=== PATIENT | female | born 1945 | race Caucasian/White ===

== ENCOUNTER → 2016-05-07 | Outpatient (CLI) | payer MEDICARE ==
[2016-04-29 15:11] VITALS: BMI 37.8
--- NOTE | 2016-05-07 15:00 | P.CONS ---
History of Present Illness - Reason for Consult Consult date: 05/07/16 - History of Present Illness This is the initial consultation visit for to 70 years old female with a three- month history of severe headache, the headache started without any initiating event, and radiated to the top of the head and behind her ears, it is bilateral but it's more on the right side, she denies any visual problems, unknown history of cold or sinus problems, and she had no motor or sensory deficit, patient denied any aura, she was treated with headache medication without any benefit, and she was evaluated by Dr. Centeno neurologist and she recommended occipital nerve block, and she is here today to discuss the occipital nerve block Past Medical History Past Medical History: COPD, CVA/TIA, Diabetes Mellitus, Deep Vein Thrombosis ( DVT), Eye Disorder, GERD/Reflux, Hyperlipidemia, Hypertension, Pneumonia, Renal Disease, Sleep Apnea/CPAP/BIPAP Additional Past Medical History / Comment(s): anemia,macular degeneration, kidney disease stage 3, hx kidney stones, pain-head History of Any Multi-Drug Resistant Organisms: None Reported Past Surgical History: Back Surgery, Orthopedic Surgery Additional Past Surgical History / Comment(s): back fusion with rods and pins, carpal tunnel amanda, arthroscopy lt knee, 2 kidney stone surgeries Past Anesthesia/Blood Transfusion Reactions: No Reported Reaction Past Psychological History: Depression Smoking Status: Former smoker Past Alcohol Use History: None Reported Additional Past Alcohol Use History / Comment(s): smoker 18 years 2ppd quit 2002 Past Drug Use History: None Reported - Past Family History Mother Family Medical History: Diabetes Mellitus Father Family Medical History: COPD Brother(s) Family Medical History: Cancer Additional Family Medical History / Comment(s): prostate cancer Sister(s) Family Medical History: Coronary Artery Disease (CAD), Diabetes Mellitus, Renal Disease Medications and Allergies Home Medications Medication Instructions Recorded Confirmed Type Acetaminophen [Tylenol Arthritis] 650 mg PO DAILY PRN 04/29/16 05/07/16 History Ascorbic Acid [Vitamin C] 500 mg PO DAILY 04/29/16 05/07/16 History Aspirin [Adult Low Dose Aspirin EC] 81 mg PO DAILY 04/29/16 05/07/16 History Atorvastatin [Lipitor] 10 mg PO DAILY 04/29/16 05/07/16 History Ergocalciferol (Vitamin D2) 50,000 unit PO TU 04/29/16 05/07/16 History [Vitamin D2] Fenofibrate Nanocrystallized 145 mg PO DAILY 04/29/16 05/07/16 History [Fenofibrate] Ferrous Sulfate [Feosol] 325 mg PO DAILY 04/29/16 05/07/16 History Fluticasone/Salmeterol [Advair 1 inhalation PO BID 04/29/16 05/07/16 History 250-50 Diskus] Focusmacular 1 tab PO DAILY 04/29/16 05/07/16 History Furosemide [Lasix] 20 mg PO DAILY 04/29/16 05/07/16 History Gabapentin [Neurontin] 300 mg PO BID 04/29/16 05/07/16 History Glimepiride [Amaryl] 4 mg PO BID 04/29/16 05/07/16 History Insulin Glargine,Hum.rec.anlog 55 unit SQ 04/29/16 05/07/16 History [Lantus Solostar] Ipratropium/Albuterol Sulfate 2 puff INHALATION QID PRN 04/29/16 05/07/16 History [Combivent Respimat Inhaler] Losartan [Cozaar] 25 mg PO DAILY 04/29/16 05/07/16 History Omeprazole 20 mg PO BID 04/29/16 05/07/16 History Psyllium Husk 100% [Metamucil] 6 gm PO 04/29/16 05/07/16 History Sertraline [Zoloft] 75 mg PO DAILY 04/29/16 05/07/16 History Turmeric Root Extract [Turmeric] 500 mg PO DAILY 04/29/16 05/07/16 History metFORMIN HCL [Glucophage] 500 mg PO BID 04/29/16 05/07/16 History Allergies Allergy/AdvReac Type Severity Reaction Status Date / Time Iodinated Contrast Media - Allergy lightheaded, Verified 05/07/16 13:48 Oral and nausea Physical Exam Social history : Former smoker , NO ETOH , NO Illegal drugs. Review of Systems : 1- Constitutional : no chills , no fever , no night sweats , 2- Ears : no ear discharge , no change in hearing 3-Nose, Mouth ,Throat ; no bleeding gums, no sore throat , no epistaxis , 4-Cardiovascular : Denies chest pain, , no orthopnea , no palpitation 5-Respiratory : Denies cough , no dyspnea , no hemoptysis 6-Gastrointestinal :, no change in bowel habits , no coffee- ground emesis . 7-Genitourinary : No hematuria , no discharge , no incontinence, 8-Musculoskeletal : No gait dysfunction , report low back pain , 9- Neurological : no ataxia , no tremor , no sezure , 10-Psychatric , no suicidal ideation no hallucination 11- Endocrine : no cold intolerence , no polyuria , no polydypsia , 12-Hematologic : no easy bleeding , no easy brusing , 13-Allergic / immunology : no angioedema , no wheezing ,no allergic rhinitis 14-Integumentary : no brttle nails , no change hair / nails , no foot/leg ulcers . Physical Examinations : 1-Constitutional : Cooperative , not in acute distress . 2-HEENT : nech ; supple , no Lymphadenopathy , no Thyromegaly , eyes , no icterus, no photophobia . ENT : , normal oropharynx , no Thrush 3- Respiratory : Chest clear to auscultations Bilaterally , no wheezing . 4- Cardiovascular : regular rate and rhythem , S1 , S2 , no S3 , no S4. 5- Gastrointestinal: abdomen soft no tenderness , no organomegally . 6- Genitourinary : Defferred . 7-Integumentary : No cellulitis , no ulcers , normal skin turgor , no cyanotic . 8- neurologic : Cranial nerve II to XII intact , no focal neurological deffecit 9-psychatric : alert , oriented X 3 , appropriate affect , intact judgment and insight . 10-Lymphatic : no Lymphadenopathy. 11- musculoskeltal: normal gait , exams of the cervical spine = motor stregnth in the deltoid and biceps, normal right side , normal Left side motor stregnth biceps and the wrist extensors normal right side ,normal left side . motor stregnth in the triceps muscle . normal Right side , normal Left side positive cervical facet loading test . Positive tenderness over the occipital nerve bilaterally exams of the Lumber spine = moter stegnth lower extremities , thigh and legs 5/5 Right side , 5/5 Left side deep tendon reflexes : normal Knee Jerk , normal ankle Jerk Results Comments: MRI of the brain done 03/04/2016 [facility]= normal MRI of the brain Assessment and Plan Plan: Assessment and plan= 1-occipital neuralgia (bilateral ) 2-cervicogenic headache. The patient could benefit from bilateral occipital nerve block, procedure risk and benefits and alternatives discussed with the patient and she agreed with the preceding, and if patient continued to have headache after the occipital nerve block then we will consider doing MRI of the cervical spine to identify the etiology, the patient will be scheduled for bilateral occipital nerve block TERRI Time with Patient: Greater than 30
== END | disposition home or self-care (01) ==
LOC: PNWHC3 13:25
PROVIDERS: ATTEND Specialist
DX: M54.81 Occipital neuralgia (principal); R51 Headache; K21.9 Gastro-esophageal reflux disease without esophagitis; D64.9 Anemia, unspecified; G47.30 Sleep apnea, unspecified; F32.9 Major depressive disorder, single episode, unspecified; N18.3 Chronic kidney disease, stage 3 (moderate); I12.9 Hypertensive chronic kidney disease with stage 1 through stage 4 chronic kidney disease, or unspecified chronic kidney disease; E11.22 Type 2 diabetes mellitus with diabetic chronic kidney disease; J44.9 Chronic obstructive pulmonary disease, unspecified; H35.30 Unspecified macular degeneration; E78.5 Hyperlipidemia, unspecified; Z79.4 Long term (current) use of insulin; Z79.84 Long term (current) use of oral hypoglycemic drugs; Z86.73 Personal history of transient ischemic attack (TIA), and cerebral infarction without residual deficits; Z79.82 Long term (current) use of aspirin; Z91.041 Radiographic dye allergy status; Z87.891 Personal history of nicotine dependence; Z82.49 Family history of ischemic heart disease and other diseases of the circulatory system; Z86.718 Personal history of other venous thrombosis and embolism; Z79.899 Other long term (current) drug therapy
CPT/HCPCS: 99211

== ENCOUNTER 2016-05-23 07:12 | Day surgery (SDC) | payer MEDICARE ==
[2016-05-20 12:08] VITALS: BMI 37.1
[2016-05-23] MEDS ORDERED: LACTATED RINGERS 1,000 ML IV ONE (08:02)
[2016-05-23] MEDS ORDERED: LIDOCAINE 1% 20 ML VIAL (10MG/ML) FOR IV START INTRADERMA ONE (08:02)
[2016-05-23 08:17] VITALS: TEMP 97.7
[2016-05-23 08:18] LABS: Glucose,Whole Blood 143 mg/dL (75-99)
[2016-05-23] MEDS ORDERED: LACTATED RINGERS 1,000 ML IV SCH (08:45)
[2016-05-23] MEDS ORDERED: BUPIVACAINE (PF) 0.5% 30 ML VIAL ONE (09:07)
[2016-05-23] MEDS ORDERED: TRIAMCINOLONE ACETONIDE 40 MG/ML 1 ML VIAL ONE (09:07)
[2016-05-23] MEDS ORDERED: IV FLUID CONTINUATION 1,000 ML IV ONE (09:19)
[2016-05-23 09:24] VITALS: PULSE 73; RESP 18
--- NOTE | 2016-05-23 09:24 | P.PCN ---
Date of Procedure: 05/23/16 Anesthesia: local Surgeon: Hugh Santos Pathology: none sent Condition: stable Disposition: PACU Description of Procedure: Pre-operative diagnosis: 1- Bilateral occipital neuralgia Post Operative Diagnosis: 1- Bilateral occipital neuralgia Procedure: Bilateral occipital nerve block ANESTHESIA: Local EBL: Minimal PROCEDURE INDICATION: The patient with neck pain and headache secondary to bilateral occipital neuralgia and has failed conservative management. No use of blood thinners today. PROCEDURE DESCRIPTION / TECHNIQUE: The patient was seen and identified in the preoperative area. Risks, benefits, complications, and alternatives were discussed with the patient (including but not limited to incomplete pain relief , bleeding, infection, nerve damage, and allergies to medications), the patient agreed to proceed with the procedure and signed the consent after all questions were answered. Patient was taken to the OR and time out was completed to verify proper patient , position, laterality of pain, and allergies. Pt was placed in the sitting position. IV was started. Vital signs remained stable throughout the procedure. Conscious sedation was used during the procedure to decrease patients anxiety. The cervical area and bilateral occipital areas were prepped in the usual sterile fashion. Critical pause was taken. The right occipital ridge was palpated and was then accessed with a 25 G needle. Then after negative aspiration, 3 ml of the total 6 ml block solution containing 4 ml of PF Bupivacaine 0.5% and Kenalog 80 mg was injected. Needle was withdrawn intact. The entire procedure was then repeated on the left side exactly as above. Needle was withdrawn intact and there were no acute complications. DISPOSITION / PLANS: The patient was placed in a supine position and transferred to the recovery area in a stable condition for observation and was discharged from the recovery room after meeting discharge criteria. Home discharge instructions given to the patient by the staff. The patient was reexamined prior to discharge and there were no issues. The patient will schedule a follow up injection in approximately 4-6 weeks.
[2016-05-23 09:39] VITALS: BP 143/78
--- NOTE | 2016-05-27 06:09 | CDI ---
Dear Dr. Santos, Per your procedure note under Anesthesia a local anesthesia was documented. Also, in the body of the report in the second paragraph under Procedure Description/Technique Conscious Sedation is documented. On the Pain Procedure Record, however, MAC is checked off under Anesthesia Plan. This is conflicting documentation that needs clarification for proper reporting purposes. Please clarify if the anesthesia provided Jalen Rogers was MAC (Monitored Anesthesia Care), Local, or Conscious/Moderate Sedation. Please document this clarification on an addendum to the procedure note. Thank you for your time, Ruthie Lugo,[facility] Outpatient Charge Entry [email or web address] [email or web address]
== END 2016-05-23 09:49 | disposition home or self-care (01) ==
LOC: ORPAIN 07:12
PROVIDERS: ATTEND Anesthesiology
DX: M54.81 Occipital neuralgia (principal); I10 Essential (primary) hypertension; E78.5 Hyperlipidemia, unspecified; E11.9 Type 2 diabetes mellitus without complications; Z79.4 Long term (current) use of insulin; Z79.84 Long term (current) use of oral hypoglycemic drugs; G47.30 Sleep apnea, unspecified; Z99.89 Dependence on other enabling machines and devices; K21.9 Gastro-esophageal reflux disease without esophagitis; J44.9 Chronic obstructive pulmonary disease, unspecified; Z87.891 Personal history of nicotine dependence; Z86.718 Personal history of other venous thrombosis and embolism; Z79.82 Long term (current) use of aspirin; Z79.51 Long term (current) use of inhaled steroids; Z79.899 Other long term (current) drug therapy; Z88.5 Allergy status to narcotic agent; Z91.041 Radiographic dye allergy status
CPT/HCPCS: 64405; J3301

== ENCOUNTER 2016-07-25 05:54 | Day surgery (SDC) | payer MEDICARE ==
[2016-07-23 16:00] VITALS: BMI 37.1
[~2016-07-25 05:54] MED LIST: LACTATED RINGERS 1,000 ML IV SCH
[2016-07-25 06:34] VITALS: RESP 16; TEMP 97.8
[2016-07-25 06:44] LABS: Glucose,Whole Blood 148 mg/dL (75-99)
[2016-07-25] MEDS ORDERED: LIDOCAINE 1% 20 ML VIAL (10MG/ML) FOR IV START INTRADERMA ONE (06:47)
[2016-07-25] MEDS ORDERED: BUPIVACAINE (PF) 0.75% 30 ML VIAL ONE (07:10)
[2016-07-25] MEDS ORDERED: TRIAMCINOLONE ACETONIDE 40 MG/ML 1 ML VIAL ONE (07:10)
[2016-07-25] MEDS ORDERED: fentaNYL (PF) 50 MCG/ML 2 ML AMP ONE (07:10)
[2016-07-25] MEDS ORDERED: MIDAZOLAM 2 MG/2 ML VIAL ONE (07:10)
[2016-07-25] MEDS ORDERED: IV FLUID CONTINUATION 1,000 ML IV ONE ×2 (07:41)
[2016-07-25 07:56] VITALS: BP 128/75; PULSE 74
--- NOTE | 2016-07-25 08:17 | P.PCN ---
Date of Procedure: 07/25/16 Procedure(s) Performed: Pre-operative diagnosis: 1- Bilateral occipital neuralgea. 2-cervicogenic headache Post Operative Diagnosis 1- Bilateral occipital neuralgea. 2-cervicogenic headache Procedure: 1- Bilateral occipital nerve block ANESTHESIA: Conscious sedation with Versed. 2 mg and fentanyl 100 micrograms EBL: Minimal PROCEDURE INDICATION: The patient with neck pain and headache secondary to occipital neuralgea unresponsive to conservative treatments. PROCEDURE DESCRIPTION / TECHNIQUE: The patient was seen and identified in the preoperative area. Risks, benefits, complications, and alternatives were discussed with the patient, the patient agreed to proceed with the procedure and signed the consent. IV was started. Vital signs remained stable throughout the procedure. Patient was taken to the OR and time out was completed. The patient was placed in the sitting position on the procedure table. A pillow was placed under the patients chest to increase the cervical interlaminar space. The cervical area and right occiptial area were prepped with alcohol swab. Critical pause was taken. Vital signs were closely monitored during the procedure. Conscious sedation was used during the procedure to decrease patients anxiety. The right occiptal ridge was palpated and was then accessed with a 25 G needle. Then after negative aspiration, 5ml of the block solution containing 6 ml of PF Buvicaine 0.75% and Kenalog 20 mg was injected. Needle was withdrawn intact. Then the same procedure was repeated on the left side and related the left occipital nerve block, after negative aspiration 6 mL of the block solution containing ropivacaine 0.75% and 20 mg of Kenalog injected after negative aspiration Patient tolerated procedure well. No acute complications.
== END 2016-07-25 08:20 | disposition home or self-care (01) ==
LOC: ORPAIN 05:54
PROVIDERS: ATTEND Specialist
DX: M54.81 Occipital neuralgia (principal); R51 Headache; Z91.09 Other allergy status, other than to drugs and biological substances
CPT/HCPCS: 64405; J2250; J3301; J3010

== ENCOUNTER → 2016-09-17 | Outpatient (CLI) | payer MEDICARE ==
[2016-09-17 13:55] VITALS: BP 138/79; PULSE 90; RESP 16; TEMP 98.4
--- NOTE | 2016-09-17 14:31 | P.PN ---
Progress Note - Text Patient returns for followup for chronic neck pain, shoulder pain, and headaches. Patient recently underwent occipital nerve block x 2, which provided some relief for 1-2 weeks' interval apiece. Patient continues on OTC medications for pain with good relief. Patient denies adverse drug effects from medications. Today, pt denies new-onset weakness, bowel/bladder incontinence, or any other signs or symptoms of cauda equina syndrome. There are no signs of acute intoxication, and no indications of medication diversion or overuse. In addition to above, 13-point review of systems is also negative for chest pain , shortness of breath, changes in vision, changes in hearing, new onset weakness , abdominal pain, diarrhea, extreme fatigue, malaise, fever, skin changes, homicidal or suicidal ideation, or bowel or bladder incontinence. Vital Signs: Reviewed in EMR Gen: WDWN, AAOx3, NAD HEENT: NCAT, EOMI, hearing grossly normal Pulm: resp unlabored Abd: soft, NT, ND Neck: supple, trachea midline ROM in flexion cervical spine: reduced ROM in extension cervical spine: reduced Cervical paravertebral tenderness: + Cervical Facet tenderness: + bilateral, R > L Spurling's: neg Upper extremity: decreased teacher early childhood development strength secondary to pain Neuro: CN II-XII grossly intact, muscle strength lower extremities PRESERVED Imaging: MRI cervical spine dated 07/19/2016 demonstrates a central disc and discogenic protrusion at C3-C4 level producing indentation on the anterior portion of the cervical cord. There is narrowing of the anterior subarachnoid space. At C4-C5 level there is circumferential discogenic protrusion producing narrowing of the anterior subarachnoid space with minimal indentation on the anterior portion of the cervical cord. There are mild hypertrophic changes of the posterior facets. At the C5-C6 level there is similar narrowing of the anterior subarachnoid space circumferential disc protrusion posteriorly. There are hypertrophic changes of the posterior facets. Assessment: 1. cervical spondylosis 2. cervicogenic headache 3. chronic pain syndrome Plan: 1. Explanation: Opioid and psychological risk scores were reviewed. Diagnoses , prognoses, and multiple treatment options including but not limited to physical therapy, interventional therapies, adjuvant medical therapies, narcotic medication therapies, and surgery were discussed with the patient and all questions were answered to the patient's satisfaction. 2. Opioid agreement: no opioids prescribed today 3. Counseling: The patient was counseled extensively on BODY MASS INDEX, EXERCISE. Specifically, the patient was instructed regarding the importance of smoking cessation, obesity, and exercise in the context of both chronic pain and overall health. 4. Procedures: bilateral cervical MBB (C3-C6 ideally) 5. Consultations: None 6. Investigations: None 7. Medications: none prescribed 8. Disposition: f/u for procedure as scheduled PQRS measures: 1-Patient's medications are documented in the chart. 2-Tobacco use is negative, counseling NOT given 3-Patient has had a pneumococcal vaccine. 4-Advanced care planning discussed, patient unable to give. 5-Opioid contract NOT signed with the patient. 6-Pain positive, follow-up visit or procedure scheduled 7-Patient's blood pressure measured and documented, and patient will follow up with the primary care due to hypertension. 8-Patient's weight was measured, and body mass index ABOVE the normal limits, and counseling was done. Patient instructed to follow up with PCP. 9-Patient WAS NOT identified as an unhealthy alcohol user.
== END | disposition home or self-care (01) ==
LOC: PNWHC3 13:28
PROVIDERS: ATTEND Anesthesiology
DX: M47.812 Spondylosis without myelopathy or radiculopathy, cervical region (principal); R51 Headache; G89.4 Chronic pain syndrome
CPT/HCPCS: 99211

== ENCOUNTER 2016-10-28 07:32 | Day surgery (SDC) | payer MEDICARE ==
[2016-10-21 12:21] VITALS: BMI 38.2
[2016-10-28 08:02] VITALS: TEMP 98.2
[2016-10-28] MEDS ORDERED: LACTATED RINGERS 1,000 ML IV ONE (08:02)
[2016-10-28] MEDS ORDERED: LIDOCAINE 1% 20 ML VIAL (10MG/ML) FOR IV START INTRADERMA ONE (08:02)
[2016-10-28] MEDS ORDERED: LACTATED RINGERS 1,000 ML IV SCH (08:30)
[2016-10-28] MEDS ORDERED: IV FLUID CONTINUATION 1,000 ML IV ONE (09:22)
--- NOTE | 2016-10-28 09:23 | P.PCN ---
Date of Procedure: 10/28/16 Preoperative Diagnosis: Cervicogenic headache Postoperative Diagnosis: Same as above Procedure(s) Performed: Bilateral cervical medial branch blockC2,C3,C4 and B/L third occipital nerve block. Implants: Anesthesia: other (Moderate sedation with 1 mg of Versed and 50 g of fentanyl IV) Surgeon: Girma Sosa Pathology: none sent Condition: stable Disposition: PACU Indications for Procedure: Operative Findings: Description of Procedure: The patient was seen in the preop holding area she was complaining of mostly headache more so than neck pain she has some stiffness in her neck the main complaint is the anterior and occipital headache. Decided to do the C2 and C3 and C4 medial branch blocks bilaterally under fluoroscopic guidance and the third occipital nerve block bilaterally. The patient was brought into the procedure room and placed in the supine position. Skin was prepped with DuraPrep and draped in a sterile manner. Lidocaine 1% was used to numb the skin up at the target points that were chosen as follows: For the occipital nerve the target points were at the center of the joint line between C2 and C3 upper ,middle, and lower edge of this joint line, and for the C2 and C3 and C4 medial branches the target points were the center of the trapezoid shaped articular pillars of C2, C3, C4 vertebra on the lateral view of fluoroscopy. I Used a 22-gauge 3-1/2 inch Quincke spinal needle for this procedure and after contacting bone at the target points mentioned above I injected 0.5 MLS of Marcaine 0.5%. No steroids were used for this procedure. The patient headache improved significantly right after the procedure from a score of 7 preoperatively to a score of 0 right after the procedure. Patient tolerated procedure well.
[2016-10-28 09:24] VITALS: RESP 16
--- NOTE | 2016-10-28 09:29 | FL ---
FLUOROSCOPY 21 of fluoroscopy time were utilized during cervical facet injection. 6 images document the procedure .
[2016-10-28 09:39] VITALS: BP 142/72; PULSE 74
== END 2016-10-28 10:13 | disposition home or self-care (01) ==
LOC: ORPAIN 07:32
PROVIDERS: ATTEND Anesthesiology
DX: M54.2 Cervicalgia (principal); R51 Headache; Z91.041 Radiographic dye allergy status
CPT/HCPCS: 99152; 64450 ×2; 64490; 64491; 64492; J2250; J3010

== ENCOUNTER 2016-11-19 06:29 | Day surgery (SDC) | payer MEDICARE ==
[2016-11-14 09:10] VITALS: BMI 38.2
[2016-11-19 07:49] VITALS: TEMP 97.9
[2016-11-19] MEDS: LACTATED RINGERS 1,000 ML IV SCH ×2 (07:53→08:19)
[2016-11-19 07:54] LABS: Glucose,Whole Blood 112 mg/dL (75-99)
[2016-11-19] MEDS ORDERED: LIDOCAINE 1% 20 ML VIAL (10MG/ML) FOR IV START INTRADERMA ONE (07:57)
[2016-11-19] MEDS ORDERED: IV FLUID CONTINUATION 1,000 ML IV ONE (08:52)
[2016-11-19 08:56] VITALS: RESP 18
[2016-11-19 08:58] LABS: Glucose,Whole Blood 99 mg/dL (75-99)
[2016-11-19 09:13] VITALS: BP 146/70; PULSE 73
--- NOTE | 2016-11-19 09:23 | FL ---
EXAMINATION TYPE: FL guided pain mgmt statistic DATE OF EXAM: 11/19/2016 HISTORY: Pain epidural injection was performed. 20 seconds of fluoroscopic time was provided by the department of radiology. 1 image was provided for documentation purposes.
--- NOTE | 2016-11-19 09:46 | P.PCN ---
Date of Procedure: 11/19/16 Preoperative Diagnosis: Postoperative Diagnosis: Procedure(s) Performed: Implants: Surgeon: Hugh Santos Pathology: none sent Condition: stable Disposition: PACU Indications for Procedure: Operative Findings: Description of Procedure: PREOPERATIVE DIAGNOSIS: Cervical spondylosis without myelopathy, cervicogenic headache. POSTOPERATIVE DIAGNOSIS: same PROCEDURES: Diagnostic bilateral C2, C3, C4 medial branch, and third occipital nerve steroid injection, with fluoroscopic guidance ANESTHESIA: Local with 1% lidocaine; conscious sedation EBL: Minimal PROCEDURE INDICATION: This is a patient with neck pain and headaches secondary to cervical arthropathy unresponsive to more conservative treatments. 10 days' relief from first MBB done without steroids. PROCEDURE DESCRIPTION / TECHNIQUE: The patient was seen and identified in the preoperative area. Risks, benefits, complications, and alternatives were discussed with the patient (including but not limited to incomplete pain relief , bleeding, infection, nerve damage, and allergies to medications), the patient agreed to proceed with the procedure and signed the consent after all questions were answered. IV was started. Vital signs remained stable throughout the procedure. Patient was taken to the OR and time out was completed to verify proper patient , allergies, and laterality of procedure. The patient was placed in the prone position on the procedure table. A pillow was placed under the patients chest to increase the cervical interlaminar space. The cervical area was prepped and draped in the usual sterile fashion. Critical pause was taken. Vital signs were closely monitored during the procedure. Conscious sedation was used during the procedure to decrease patients anxiety. Using cross-table lateral fluoroscopy, the centroid of the trapezoid of right C3 , was identified, marked, and localized with 1% lidocaine. Subsequently, a 22 G 3.5-inch spinal needle was advanced guided by fluoroscopy to the centroid of the trapezoid of C3. Needle tip position was confirmed at the centroid of the trapezoids of C3 with anteroposterior fluoroscopy. Subsequently, 1 ml of a combination of 10 mg Decadron and 5 ml of preservative-free Bupivacaine 0.5% was injected after negative aspiration for blood and CSF. Needle was then removed intact the same procedure was repeated at the right C2 and C4 levels, and then for the left C2, C3, and C4 levels. COMPLICATIONS: No acute complications. COMMENTS: DISPOSITION / PLANS: The patient was placed in a supine position and transferred to the recovery area in a stable condition for observation and was discharged from the recovery room after meeting discharge criteria. Home discharge instructions given to the patient by the staff. The patient was reexamined prior to discharge. The patient will schedule a left cervical RFA for next visit.
== END 2016-11-19 09:35 | disposition home or self-care (01) ==
LOC: ORPAIN 06:29
PROVIDERS: ATTEND Anesthesiology
DX: M47.812 Spondylosis without myelopathy or radiculopathy, cervical region (principal); R51 Headache; M46.92 Unspecified inflammatory spondylopathy, cervical region
CPT/HCPCS: 64490; 64491; 64492; 99152; J2250; J1100; 99153

== ENCOUNTER 2016-12-18 07:08 | Day surgery (SDC) | payer MEDICARE ==
[2016-12-16 15:08] VITALS: BMI 37.8
[2016-12-18] MEDS ORDERED: LACTATED RINGERS 1,000 ML IV SCH (07:30)
[2016-12-18 07:50] VITALS: TEMP 98.2
[2016-12-18] MEDS ORDERED: LIDOCAINE 1% 20 ML VIAL (10MG/ML) FOR IV START INTRADERMA ONE (07:50)
[2016-12-18 07:55] LABS: Glucose,Whole Blood 143 mg/dL (75-99)
--- NOTE | 2016-12-18 09:45 | FL ---
EXAMINATION TYPE: FL guided pain mgmt statistic DATE OF EXAM: 12/18/2016 HISTORY: Pain RF cervical 4 levels, 18sec fl time
[2016-12-18 10:13] VITALS: RESP 18
[2016-12-18 10:16] VITALS: BP 111/59; PULSE 79
[2016-12-18] MEDS ORDERED: IV FLUID CONTINUATION 1,000 ML IV ONE (10:34)
[2016-12-18 10:47] LABS: Glucose,Whole Blood 146 mg/dL (75-99)
--- NOTE | 2016-12-19 10:42 | P.PCN ---
Date of Procedure: 12/18/16 Surgeon: Hugh Santos Pathology: none sent Condition: stable Disposition: PACU Description of Procedure: PREOPERATIVE DIAGNOSIS: Cervical spondylosis without myelopathy and facet arthropathy. POSTOPERATIVE DIAGNOSIS: Cervical spondylosis without myelopathy and facet arthropathy. PROCEDURES: Radiofrequency thermocoagulation, C2-C3, C3-C4, C4-C5 medial branch and third occipital nerve, with fluoroscopic guidance, left side. ANESTHESIA: Local with 1% lidocaine; conscious sedation EBL: Minimal PROCEDURE INDICATION: The patient with neck pain secondary to cervical arthropathy who had more than 50% relief of her pain with previous diagnostic cervical medial branch block. No use of blood thinners. PROCEDURE DESCRIPTION / TECHNIQUE: The patient was seen and identified in the preoperative area. Risks, benefits, complications, and alternatives were discussed with the patient (with risks including but not limited to bleeding, infection, nerve damage, incomplete pain relief, and allergic reactions to medications), the patient agreed to proceed with the procedure and signed the informed consent after all questions were answered. IV was started. Vital signs remained stable throughout the procedure. Patient was taken to the OR and time out was completed. The patient was placed in the prone position on the procedure table. A pillow was placed under the patients chest to increase the cervical interlaminar space. The cervical area was prepped and draped in the usual sterile fashion. Critical pause was taken. Vital signs were closely monitored during the procedure. Conscious sedation was used during the procedure to decrease patients anxiety. Using cross-table lateral fluoroscopy, the centroid of the trapezoid of C2, C3, C4, C5, C6 were identified, marked, and localized with 1% lidocaine. Subsequently, a 21 gauge 100-mm radiofrequency cannula with a 5-mm active tip was advanced guided by fluoroscopy to the centroid of the trapezoid of C2, C3, C4, and C2/C3 facet joint for the third occipital nerve. Needle tip position was confirmed with anteroposterior fluoroscopy. Each site then underwent sensory testing at 50 Hz and 0 to 1 volt and motor testing at 2 Hz and 0 to 3 volt with local stimulation, but no radicular symptoms down the arm. Thereafter the four sites underwent radiofrequency thermocoagulation at 80 degrees celsius for 90 seconds after injecting 0.5 ml of PF lidocaine 1%. After thermocoagulation, 1 ml of the block solution containing Decadron 10 mg and 2 mL of preservative-free normal saline was injected at the C3, C4, and C5 levels after negative aspiration of CSF and blood and with no paresthesias. Cannulas were retracted while injecting lidocaine 1% until the needles were removed. Skin was cleansed and bandages were applied. COMPLICATIONS: No acute complications. COMMENTS: DISPOSITION / PLANS: The patient was placed in a supine position and transferred to the recovery area in a stable condition for observation and was discharged from the recovery room after meeting discharge criteria. Home discharge instructions given to the patient by the staff. The patient was reexamined prior to discharge and there were no issues. The patient will schedule a right cervical and TON RFA at next visit.
== END 2016-12-18 10:40 | disposition home or self-care (01) ==
LOC: ORPAIN 07:08
PROVIDERS: ATTEND Anesthesiology
DX: M47.812 Spondylosis without myelopathy or radiculopathy, cervical region (principal); M46.92 Unspecified inflammatory spondylopathy, cervical region; Z91.041 Radiographic dye allergy status; Z79.01 Long term (current) use of anticoagulants; Z79.82 Long term (current) use of aspirin
CPT/HCPCS: 64633; 64634; 99152; 99153; J2250; J1100; J3301

== ENCOUNTER → 2017-02-18 | Outpatient (CLI) | payer MEDICARE ==
[2017-02-18 12:03] VITALS: BP 138/75; PULSE 87; RESP 18; TEMP 98.6
--- NOTE | 2017-02-18 13:27 | P.PN ---
Subjective Progress Note Date: 02/18/17 this is , follow up visit for this 71 years old female with a chronic history of severe neck pain ,and headache, diagnosed with cervical spondylosis,with cervical facet arthropathy , have done radiofrequency ablation of the cervical medial branch C2-C3/C3 4/ C4 5 , the radiofrequency of the left-sided cervical and occipital, if she reported that her neck pain improved significantly after the radiofrequency, currently most of the pain localized in the right side, she was stable in the past radiofrequency ablation of the right side but the procedure was canceled because patient had no pain on the right side, she reported that she continued to feel numbness in the base of the skull on the left side, she denies any motor or sensory deficit she denies any fever or night sweats but she denies any angina bowel movement or urination Objective - Vital Signs Vital signs: Vital Signs Temp 98.6 F 02/18/17 11:55 Pulse 87 02/18/17 11:55 Resp 18 02/18/17 11:55 BP 138/75 02/18/17 11:55 Pulse Ox Intake & Output 02/17/17 02/18/17 02/18/17 18:59 06:59 18:59 Weight 102.965 kg - Exam Physical Examinations : 1-Constitutiona : Cooperative , not in acute distress . 2-HEENT : nech ; supple , no Lymphadenopathy , normal thyroid size . eyes : no ptosis , no icterus, no photophobia . ENT : normal of hearing , normal oropharynx , no Thrush . 3- Respiratory : Chest clear to auscultations Bilaterally , no wheezing , no Rhonchi . 4- Cardiovascular : regular rate and rhythem , S1 , S2 , no S3 , no S4. 5- Gastrointestinal : abdomen soft no tenderness , bowel sounds positive all four quadrents , no organomegally . 6- Genitourinary : Defferred . 7- neurologic : Cranial nerve II to XII intact , no focal neurological deffecit . 8-psychatric : alert , oriented X 3 , appropriate affect , intact judgment and insight . 9-Lymphatic : no Lymphadenopathy . 10- musculoskeltal : cervical spine = motor stregnth in the deltoid and biceps, motor stregnth biceps and the wrist extensors (C6) . motor stregnth in the triceps muscle . deep tendon reflexes normal at the biceps , l normal at Brachioradialis normal at the triceps positive cervical facet loading test . , Lumber spine = normal moter stegnth lower extremities ,thigh and legs .08/09 Assessment and Plan Plan: Assessment and plan= chronic neck pain and headache secondary to cervical degenerative disc disease , cervical spondylosis with lumbar facet arthropathy , Status post radiofrequency ablation of the left side medial branches cervical area Patient will be scheduled to have radiofrequency ablation of the right- sided medial branch cervical area C2-C3/C3/C4 5 / and radiofrequency ablation of the right side and third occipital nerve , also patient could benefit from Voltaren gel to be applied to the cervical area , we cannot give patient to oral NSAIDs because patient had a kidney disease and oral NSAID could cause further deterioration of her kidney function Follow-up= procedure date given for radiofrequency ablation of the medial branch cervical area , Time with Patient: Less than 30
== END | disposition home or self-care (01) ==
LOC: PNWHC3 11:14
PROVIDERS: ATTEND Specialist
DX: M50.30 Other cervical disc degeneration, unspecified cervical region (principal); M47.812 Spondylosis without myelopathy or radiculopathy, cervical region; M46.86 Other specified inflammatory spondylopathies, lumbar region
CPT/HCPCS: 99211

== ENCOUNTER 2017-04-30 06:31 | Day surgery (SDC) | payer MEDICARE ==
[2017-04-24 17:02] VITALS: BMI 35.8
[2017-04-30] MEDS ORDERED: IV FLUID CONTINUATION 1,000 ML IV ONE ×2 (07:47→09:08)
[2017-04-30 07:56] VITALS: TEMP 97.2
[2017-04-30 08:05] LABS: Glucose,Whole Blood 222 mg/dL (75-99)
[2017-04-30] MEDS ORDERED: LACTATED RINGERS 1,000 ML IV SCH (08:15)
[2017-04-30 09:10] VITALS: RESP 18
[2017-04-30 09:20] LABS: Glucose,Whole Blood 223 mg/dL (75-99)
[2017-04-30 09:28] VITALS: BP 118/66; PULSE 74
--- NOTE | 2017-04-30 13:18 | P.PCN ---
Date of Procedure: 04/30/17 Surgeon: Hugh Santos Pathology: none sent Condition: stable Disposition: PACU Description of Procedure: PREOPERATIVE DIAGNOSIS: Cervical spondylosis without myelopathy and facet arthropathy. POSTOPERATIVE DIAGNOSIS: Cervical spondylosis without myelopathy and facet arthropathy. PROCEDURES: Radiofrequency thermocoagulation, C2-C3, C3-C4, C4-C5 medial branch and third occipital nerve, with fluoroscopic guidance, right side. ANESTHESIA: Local with 1% lidocaine; conscious sedation EBL: Minimal PROCEDURE INDICATION: The patient with neck pain secondary to cervical arthropathy who had more than 50% relief of her pain with previous diagnostic cervical medial branch block. No use of blood thinners. PROCEDURE DESCRIPTION / TECHNIQUE: The patient was seen and identified in the preoperative area. Risks, benefits, complications, and alternatives were discussed with the patient (with risks including but not limited to bleeding, infection, nerve damage, incomplete pain relief, and allergic reactions to medications), the patient agreed to proceed with the procedure and signed the informed consent after all questions were answered. IV was started. Vital signs remained stable throughout the procedure. Patient was taken to the OR and time out was completed. The patient was placed in the prone position on the procedure table. A pillow was placed under the patients chest to increase the cervical interlaminar space. The cervical area was prepped and draped in the usual sterile fashion. Critical pause was taken. Vital signs were closely monitored during the procedure. Conscious sedation was used during the procedure to decrease patients anxiety. Using cross-table lateral fluoroscopy, the centroid of the trapezoid of C2, C3, C4, C5, C6 were identified, marked, and localized with 1% lidocaine. Subsequently, a 21 gauge 100-mm radiofrequency cannula with a 5-mm active tip was advanced guided by fluoroscopy to the centroid of the trapezoid of C2, C3, C4, and C2/C3 facet joint for the third occipital nerve. Needle tip position was confirmed with anteroposterior fluoroscopy. Each site then underwent sensory testing at 50 Hz and 0 to 1 volt and motor testing at 2 Hz and 0 to 3 volt with local stimulation, but no radicular symptoms down the arm. Thereafter the four sites underwent radiofrequency thermocoagulation at 80 degrees celsius for 90 seconds after injecting 0.5 ml of PF lidocaine 1%. After thermocoagulation, 1 ml of the block solution containing 3 mL of preservative- free 1% lidocaine was injected at the C3, C4, and C5 levels after negative aspiration of CSF and blood and with no paresthesias. Cannulas were retracted while injecting lidocaine 1% until the needles were removed. Skin was cleansed and bandages were applied. COMPLICATIONS: No acute complications. COMMENTS: DISPOSITION / PLANS: The patient was placed in a supine position and transferred to the recovery area in a stable condition for observation and was discharged from the recovery room after meeting discharge criteria. Home discharge instructions given to the patient by the staff. The patient was reexamined prior to discharge and there were no issues. Patient will follow up in clinic in 3-4 weeks for further evaluation.
--- NOTE | 2017-04-30 17:13 | FL ---
Fluoroscopy INDICATION: Pain FINDINGS: Fluoroscopy time: 31 seconds. Images obtained: 1. IMPRESSIONS: 1. Documentation of fluoroscopy.
== END 2017-04-30 09:42 | disposition home or self-care (01) ==
LOC: ORPAIN 06:31
PROVIDERS: ATTEND Anesthesiology
DX: G89.29 Other chronic pain (principal); M47.812 Spondylosis without myelopathy or radiculopathy, cervical region; I10 Essential (primary) hypertension; E78.5 Hyperlipidemia, unspecified; E11.9 Type 2 diabetes mellitus without complications; Z91.041 Radiographic dye allergy status
CPT/HCPCS: 64633; 64634 ×2; J2250; J2001; J3010; 99152; 99153

== ENCOUNTER → 2017-05-12 | Outpatient (CLI) | payer MEDICARE ==
[2017-05-12 15:16] VITALS: BP 151/68; PULSE 81; RESP 16
--- NOTE | 2017-05-12 20:20 | P.PN ---
Subjective Progress Note Date: 05/12/17 This is follow-up visit for this patient with a history of severe and chronic headache with occipital neuralgia and cervicogenic headache and cervical spondylosis, status post radiofrequency ablation of the medial branch cervical area, and radiofrequency ablation of the third occipital nerve, she reported that her headache improved significantly and currently she is having some neck pain, she denies any motor or sensory deficit she denies any numbness or tingling sensation in the upper or lower extremities,, and she is currently using Voltaren gel when necessary Patient denies any side effects of the medication, denies excessive drowsiness or sleepiness, denies suicidal ideation, and reports that the current pain medication is helping To control the pain Physical Examinations : 1-Constitutiona : Cooperative , not in acute distress . 2-HEENT : nech ; supple , no Lymphadenopathy , no Thyromegaly , normal thyroid size . eyes : no ptosis , no icterus, no photophobia . ENT : normal of hearing , normal oropharynx , no Thrush . 3- Respiratory : Chest clear to auscultations Bilaterally , no wheezing , no Rhonchi . 4- Cardiovascular : regular rate and rhythem , S1 , S2 , no S3 , no S4. 5- Gastrointestinal : abdomen soft no tenderness , bowel sounds positive all four quadrents , no organomegally . 6- Genitourinary : Defferred . 7- neurologic : Cranial nerve II to XII intact , no focal neurological deffecit . 8-psychatric : alert , oriented X 3 , appropriate affect , intact judgment and insight . 9-Lymphatic : no Lymphadenopathy . 10- musculoskeltal : exams of the cervical spine = motor strength normal bilateral upper extremities positive. multiple trigger point in the cervical paravertebral muscles exams of the Lumber spine = motor strength lower extremities ,thigh and legs .5/5 Assessment and plan = Cervical spondylosis , with cervical facet arthropathy without myelopathy, occipital neuralgia Headache, improved, after the radiofrequency of the medial branch cervical area, Currently she is complaining of some myofascial pain in the cervical area patient reported that she had good result with the Voltaren gel, and she is using heating pad, and this is also helping her neck pain, patient doing well and she will follow up with the pain clinic when needed Objective - Vital Signs Vital signs: Vital Signs Temp Pulse 81 05/12/17 15:08 Resp 16 05/12/17 15:08 BP 151/68 05/12/17 15:08 Pulse Ox Intake & Output 05/12/17 05/12/17 05/13/17 06:59 18:59 06:59 Weight 102.965 kg
== END | disposition home or self-care (01) ==
LOC: PNWHC3 14:07
PROVIDERS: ATTEND Specialist
DX: G89.29 Other chronic pain (principal); R51 Headache; M54.81 Occipital neuralgia; M47.812 Spondylosis without myelopathy or radiculopathy, cervical region; M46.82 Other specified inflammatory spondylopathies, cervical region; Z79.1 Long term (current) use of non-steroidal anti-inflammatories (NSAID)
CPT/HCPCS: 99211

== ENCOUNTER 2017-12-19 12:06 | Inpatient (IN) | payer MEDICARE ==
[2017-12-19] MEDS ORDERED: ACETAMINOPHEN TAB 500 MG TAB PO PRN (12:12)
--- NOTE | 2017-12-19 12:34 | P.CNOR ---
History of Present Illness - HPI Consult date: 12/19/17 History of present illness: This is a 72-year-old female who is admitted for cellulitis of the right little finger. Patient presented as an outpatient for redness and swelling x2 days of the right little finger and was evaluated by Dr. Bill. Patient states that she has also noticed redness going up her arm. Patient denies any fever or chills, numbness, weakness, shortness of breath or chest pain. Patient's past medical history is significant for type 2 diabetes, chronic kidney disease, diabetic neuropathy and lung disease. Review of Systems See HPI. Past Medical History Past Medical History: Asthma, Blood Disorder, COPD, CVA/TIA, Diabetes Mellitus, Deep Vein Thrombosis (DVT), Eye Disorder, GERD/Reflux, Hyperlipidemia, Hypertension, Memory Impairment, Osteoarthritis (OA), Pneumonia, Renal Disease, Sleep Apnea/CPAP/BIPAP Additional Past Medical History / Comment(s): Hx anemia,macular degeneration, kidney disease stage 3, hx kidney stones, pain to head.No deficits from CVA. No CPAP use., Herniated disc in neck. Hx pneumonia in 2002. History of Any Multi-Drug Resistant Organisms: None Reported Past Surgical History: Back Surgery, Orthopedic Surgery Additional Past Surgical History / Comment(s): Hx back fusion with rods and pins , carpal tunnel amanda, arthroscopy lt knee, 2 kidney stone surgeries. Past Anesthesia/Blood Transfusion Reactions: Motion Sickness Past Psychological History: Depression Smoking Status: Former smoker Past Alcohol Use History: None Reported Additional Past Alcohol Use History / Comment(s): Smoked 2 PPD for 19 yrs, quit in 2002. Past Drug Use History: None Reported - Past Family History Mother Family Medical History: Diabetes Mellitus Father Family Medical History: COPD Brother(s) Family Medical History: Cancer Additional Family Medical History / Comment(s): prostate cancer, Sister(s) Family Medical History: Cancer, Coronary Artery Disease (CAD), Diabetes Mellitus , Renal Disease Additional Family Medical History / Comment(s): Alzheimers. Medications and Allergies Home Medications Medication Instructions Recorded Confirmed Type Ascorbic Acid [Vitamin C] 500 mg PO DAILY 04/29/16 05/12/17 History Aspirin [Adult Low Dose Aspirin EC] 81 mg PO HS 04/29/16 05/12/17 History Atorvastatin [Lipitor] 10 mg PO DAILY 04/29/16 05/12/17 History Ergocalciferol (Vitamin D2) 50,000 unit PO TU 04/29/16 05/12/17 History [Vitamin D2] Fenofibrate Nanocrystallized 145 mg PO HS 04/29/16 05/12/17 History [Fenofibrate] Ferrous Sulfate [Feosol] 325 mg PO DAILY 04/29/16 05/12/17 History Fluticasone/Salmeterol [Advair 1 inhalation PO BID 04/29/16 05/12/17 History 250-50 Diskus] Furosemide [Lasix] 20 mg PO DAILY 04/29/16 05/12/17 History Glimepiride [Amaryl] 4 mg PO BID 04/29/16 05/12/17 History Insulin Glargine,Hum.rec.anlog 55 unit SQ 04/29/16 05/12/17 History [Lantus Solostar] Ipratropium/Albuterol Sulfate 2 puff INHALATION QID PRN 04/29/16 05/12/17 History [Combivent Respimat Inhaler] Losartan [Cozaar] 25 mg PO HS 04/29/16 05/12/17 History Omeprazole 20 mg PO BID 04/29/16 05/12/17 History Psyllium Husk 100% [Metamucil] 6 gm PO HS 04/29/16 05/12/17 History Turmeric Root Extract [Turmeric] 500 mg PO DAILY 04/29/16 05/12/17 History metFORMIN HCL [Glucophage] 500 mg PO BID 04/29/16 05/12/17 History Focus Eye Vitamin 1 tab PO DAILY 01/08/17 05/12/17 History Diclofenac Sodium Gel [Voltaren 2 gm TOPICAL QID #100 tube 02/18/17 05/12/17 Rx Gel] Sertraline [Zoloft] 100 mg PO DAILY 05/12/17 05/12/17 History Allergies Allergy/AdvReac Type Severity Reaction Status Date / Time Iodinated Contrast- Oral and Allergy lightheaded, Verified 05/12/17 15:06 IV Dye nausea, [Iodinated Contrast Media - sweating Oral and] Physical Examination On exam patient is well-appearing. There is erythema of the entire right little finger extending to the hand and wrist. There is swelling of the entire right little finger. The right little finger is tender to palpation and there is limitation with range of motion due to pain and swelling. Skin is intact. Neurovascular status and circulatory status are intact. Assessment and Plan (1) Cellulitis of finger of right hand Status: Acute Code(s): L03.011 - CELLULITIS OF RIGHT FINGER SNOMED Code(s): 97386579 (2) Type 2 diabetes mellitus Status: Acute Code(s): E11.9 - TYPE 2 DIABETES MELLITUS WITHOUT COMPLICATIONS SNOMED Code(s): 12528258 (3) Chronic kidney disease (CKD) Status: Acute Code(s): N18.9 - CHRONIC KIDNEY DISEASE, UNSPECIFIED SNOMED Code(s): 053667876 Plan: 1. Warm compresses and IV antibiotics. 2. Infectious disease consult pending. 3. X-rays taken in the office as an outpatient are negative for any fracture, dislocation or bony involvement. 4. NPO after midnight. 5. Possible I&D of the right little finger on 12/20/2017 pending antibiotic response, medical clearance and consent.
[2017-12-19 14:14] VITALS: BMI 35.6
[2017-12-19] MEDS: HYDROmorphone 1 MG/ML 1 ML SYRINGE IVP PRN ×2 (14:52→20:56)
[2017-12-19] MEDS: SODIUM CHLORIDE 0.9% 1,000 ML IV SCH (14:53)
[2017-12-19] MEDS ORDERED: ceFAZolin 1,000 MG in DEXTROSE/WATER 1 50ML.BAG IVPB SCH (16:00)
[2017-12-19 16:03] LABS: Basophils # (A) 0.1 k/uL (0-0.2); Basophils % (A) 0 %; Eosinophils # (A) 0.1 k/uL (0-0.7); Eosinophils % (A) 1 %; HCT 42.9 % (34.0-46.0); HGB 13.6 gm/dL (11.4-16.0); Lymphocytes % (A) 19 %; MCH 27.8 pg (25.0-35.0); MCHC 31.8 g/dL (31.0-37.0); MCV 87.5 fL (80.0-100.0); Mean Platelet Volume 7.6; Monocytes # (A) 0.8 k/uL (0-1.0); Monocytes % (A) 7 %; Neutrophils # (A) 7.3 k/uL (1.3-7.7); Neutrophils % (A) 70 %; Platelet Count 255 k/uL (150-450); RDW 13.1 % (11.5-15.5); WBC 10.4 k/uL (3.8-10.6)
[2017-12-19 16:08] LABS: Calcium 10.4 mg/dL (8.4-10.2); Potassium 4.4 mmol/L (3.5-5.1)
[2017-12-19] MEDS ORDERED: ONDANSETRON 4 MG/2 ML VIAL IVP PRN (16:47)
[2017-12-19] MEDS: INSULIN ASPART 100 UNIT/ML 1 ML 10 ML VIAL SQ SCH ×2 (17:12→21:31)
[2017-12-19 17:13] LABS: Glucose,Whole Blood 88 mg/dL (75-99)
[2017-12-19] MEDS ORDERED: MELATONIN 3 MG TABLET PO PRN (17:59)
[2017-12-19] MEDS ORDERED: ALPRAZolam 0.25 MG TAB PO PRN (17:59)
[2017-12-19] MEDS ORDERED: TEMAZEPAM 15 MG CAP PO PRN (18:12)
[2017-12-19] MEDS: AMPICILLIN-SULBACTAM 3 GM in SODIUM CHLORIDE 0.9% 100 ML IVPB SCH (18:23)
--- NOTE | 2017-12-19 19:12 | HP ---
HISTORY AND PHYSICAL CHIEF COMPLAINT: Pain and swelling of the rt little finger. HISTORY OF PRESENT ILLNESS: This 72-year-old woman with a past medical history of multiple medical problems including asthma, COPD, CVA, TIA, diabetes, DVT, history of GERD, hypertension, hyperlipidemia, history of DJD, history of renal disease, history of sleep apnea, history of back surgery, history of depression, being followed by Dr. Sean Michaud in the outpatient setting, apparently was noted to have pain and swelling of the right little finger for the last 3 4 days. The patient presented to Orthopedics and was evaluated Dr. Bill and some redness was noted and the patient was sent to [facility] as a direct admission for further evaluation and treatment. There is no history of fever, rigors. No headache loss of consciousness, seizures. Patient also had features of bilateral knee arthritis also. The patient also had contact with cat litter a few days ago, according to her. PAST MEDICAL HISTORY: History of diabetes type 2, history of asthma, COPD, CVA, TIA, DVT, history of GERD, hypertension, hyperlipidemia, history of memory impairment, sleep apnea, history of back surgery, DJD, history of depression. MEDICATIONS: Prior to admission include home medications are: 1. Glucophage 500 mg p.o. b.i.d. 2. Turmeric 500 mg p.o. daily. 3. Zoloft 50 mg p.o. daily. 4. Metamucil 6 mg q.h.s. 5. Omeprazole 40 mg p.o. 6. Cozaar 25 mg q.h.s. 7. Combivent 2 puffs q.i.d. p.r.n. 8. Lantus 30 units subcu q.h.s. 9. Amaryl 4 mg p.o. b.i.d. 10.Lasix 20 mg p.o. daily. 11.I-Carrie vitamin focus 1 p.o. daily. 12.Advair 250/50 1 puff b.i.d. 13.Iron sulfate 320 mg. 14.Fenofibrate 140 mg q.h.s. 15.Vitamin D2, 50,000 q.6h. 16.Trulicity 0.7 mg subcu 7 days. 17.Voltaren gel 2 g topically q.i.d. p.r.n. 18.Lipitor 10 mg p.o. daily. 19.Aspirin 81 mg q.h.s. 20.Vitamin C 500 mg p.o. daily. 21.Tylenol 500 mg q.4h p.r.n. ALLERGIES: IODINATED CONTRAST DYES. FAMILY HISTORY: History of diabetes mellitus, prostate cancer. SOCIAL HISTORY: Previous history of smoking. No history of current smoking or alcohol intake. REVIEW OF SYSTEMS: ENT: No diminished vision. No diminished hearing. CARDIOVASCULAR: No angina or palpitations. RESPIRATORY: As mentioned earlier. GASTROINTESTINAL: No nausea or vomiting. no dysuria. Nervous system: No numbness or weakness. Allergy/Immunology: As mentioned earlier. Hematology/Oncology: No history of anemia. ENDOCRINE: Diabetes. CONSTITUTIONAL: As mentioned earlier. Dermatology: As mentioned earlier. Rheumatology: Negative. Psychiatry: As mentioned earlier. PHYSICAL EXAM: Patient is alert, oriented x3. The pulse is 87. Blood pressure 118/84, respirations 16, temperature 98 degrees, pulse ox 94% on room air. HEENT: Conjunctivae normal. Oral mucosa moist. Neck is no jugular venous distention. No carotid bruit. No lymph node enlargement. Cardiovascular system: S1, S2 muffled. No S3, no S4. RESPIRATORY: Breath sounds diminished in the bases. No rhonchi. No crackles. ABDOMEN: Soft, nontender. No mass palpable. Legs: No edema and no swelling. NERVOUS SYSTEM: Higher functions as mentioned earlier. Moves all four limbs. No focal motor or sensory deficits. Lymphatics: No lymph nodes palpable in the neck, axillae or groin. Skin: Erythema of the right little finger present. Right hand significant pain and tenderness and swelling of the right little finger and also the patient also had limited movements, painful movements of the joints of the right little finger and also there are whites spots in the nails most of the nails, which the patient is ascribed to manually push the cuticle up according to her. LAB: Initial CBC within normal limits. Otherwise sodium 140. Potassium 4.2, creatinine 1.16, calcium 10.4. ASSESSMENT: 1. Acute cellulitis of the right little finger with failure of outpatient treatment. 2. Increased creatinine with mild acute renal failure. 3. Increased calcium. 4. History of asthma, chronic obstructive pulmonary disease. 5. History of cerebrovascular accident, transient ischemic attack. 6. Diabetes mellitus type 2. 7. History of deep vein thrombosis. 8. History of gastroesophageal reflux disease. 9. History of hypertension. 10.History of hyperlipidemia. 11.History of degenerative joint disease. 12.History of memory impairment. 13.Sleep apnea. 14.History of anemia. 15.History of back surgery. 16.History of depression. 17.Remote history of nicotine dependence. RECOMMENDATIONS AND DISCUSSION: In this 72-year-old woman who presented with multiple complex medical issues, we will monitor the patient closely, continue the current medications, management and symptomatic treatment. We will initiate broad-spectrum IV antibiotics, Unasyn. Follow the cultures. Infectious disease evaluation. Continue the IV fluids. Monitor creatinine closely. DVT prophylaxis. Continue the rest of the medications. I would also recommend evaluation for any acute gout. Also I would recommend a sedimentation rate, ESR and as well as see serum uric acid also. Guarded prognosis because of multiple complex medical issues. Further recommendations to follow. Copy of dictation forwarded to Dr. Armando Michaud who is the primary physician. Dr. Bill will be following the patient closely. MMARTURO / IDANIAN: [id number] / MTDD
[2017-12-19 19:17] LABS: Albumin 4.2 g/dL (3.5-5.0); C Reactive Protein 21.6 mg/L (<10.0); Calcium 9.9 mg/dL (8.4-10.2); Potassium 4.5 mmol/L (3.5-5.1); Total Bilirubin 0.4 mg/dL (0.2-1.3)
[2017-12-19] MEDS: SYMBICORT 80-4.5 MCG INHALER INHALATION SCH (20:02)
[2017-12-19 21:12] LABS: Glucose,Whole Blood 192 mg/dL (75-99)
[2017-12-19 21:15] LABS: Amorphous Sediment,Urine Rare /hpf; Appearance,Urine Clear (Clear); Bilirubin,Urine Negative (Negative); Blood,Urine Negative (Negative); Color,Urine Yellow; Glucose,Urine (UA) Negative (Negative); Ketones,Urine Negative (Negative); Leukocyte Esterase,Urine Moderate (Negative); Mucus,Urine Rare /hpf; Nitrite,Urine Negative (Negative); PH, Urine 5.5 (5.0-8.0); Protein,Urine Negative (Negative); RBC,Urine <1 /hpf (0-5); Specific Gravity,Urine 1.016 (1.001-1.035); Squamous Epithelial Cell,Urine 1 /hpf (0-4); Urobilinogen,Urine <2.0 mg/dL (<2.0); WBC,Urine 10 /hpf (0-5)
[2017-12-19] MEDS: GLIMEPIRIDE 4 MG TAB PO SCH (21:30)
[2017-12-19] MEDS: ASPIRIN 81 MG PO SCH (21:30)
[2017-12-19] MEDS: HEPARIN SODIUM,PORCINE 5,000 UNIT/ML 1 ML VIAL SQ SCH (21:30)
[2017-12-19] MEDS: FENOFIBRATE 160 MG TAB PO SCH (21:30)
[2017-12-19] MEDS: PSYLLIUM HUSK 100% 6 GM PACKET PO SCH (21:32)
[2017-12-19] MEDS: INSULIN DETEMIR 100 UNIT/ML 10 ML VIAL SQ SCH (21:32)
[2017-12-19] MEDS: metFORMIN 500 MG TAB PO SCH (21:32)
[2017-12-20] MEDS: AMPICILLIN-SULBACTAM 3 GM in SODIUM CHLORIDE 0.9% 100 ML IVPB SCH ×5 (00:21→23:55)
[2017-12-20] MEDS: HYDROmorphone 1 MG/ML 1 ML SYRINGE IVP PRN ×4 (02:50→23:56)
--- NOTE | 2017-12-20 06:40 | CONS ---
CONSULTATION DATE OF SERVICE: 12/19/2017. REASON FOR CONSULTATION: Right little finger infection. HISTORY OF PRESENT ILLNESS: The patient is a 72-year-old female who apparently developed pain swelling and redness of little finger about 2 days. The area subsequently became bigger in size and became painful. Pain described to be throbbing almost 7 to 8/10, and no radiation. There is no skin breakdown or any drainage. The patient subsequently went to the [facility] ER yesterday where the patient had been evaluated. She was started on oral doxycycline and has been referred to Dr. Ivey at [facility]. The patient said she was unable to see Dr. Ivey, but did see Dr. Thakkar who advised the patient to be admitted hospital for IV antibiotic therapy and possible drainage of the abscess tomorrow. Subsequently the patient was brought into the ER and admitted hospital. She was initially started on cefazolin that was transitioned to Unasyn by the medical team. Infectious Disease was consulted for further recommendation regarding antibiotic therapy. The patient did have some chills but denies high-grade fever. Denies having any chest pain, shortness of breath, cough. No abdominal pain. No diarrhea. REVIEW OF SYSTEMS: CONSTITUTIONAL: Positive for weakness. No fever. EYES: No complaint. ENT: No complaint. RESPIRATORY: No complaint. CARDIOVASCULAR: No complaint. GENITOURINARY: No complaint. GASTROINTESTINAL: No complaint. MUSCULOSKELETAL: As per HPI. INTEGUMENTARY: As per HPI. PSYCHOLOGICAL: No complaint. NEUROLOGIC: No complaint. PAST MEDICAL HISTORY: Type 2 diabetes mellitus, asthma, COPD, CVA, TIA, and DVT, gastroesophageal reflux disease, hypertension, hyperlipidemia, sleep apnea, depression. PAST SURGICAL HISTORY: Back surgery. SOCIAL HISTORY: Denies smoking, drinking or drug use. FAMILY HISTORY: Father with history of prostate cancer and diabetes mellitus. ALLERGIES: IODINE, CONTRAST DYE. MEDICATION: Include the patient currently on Tylenol, Plev[place], DuoNeb, Xanax, Unasyn 3 g q.6h. She is on vitamin C, aspirin, Lipitor, Symbicort, vitamin D2, low-grade iron sulfate, Amaryl, heparin, Dilaudid, NovoLog, Levemir, melatonin, Glucophage, Zofran, Protonix, Zoloft and Restoril. PHYSICAL EXAMINATION: Her blood pressure is 119/84 with a pulse of 87, temperature of 98. She is 94% on room air. General description is an elderly female up in the bed in no distress. No tachypnea or accessory muscle of respiration use. HEENT: Shows no pallor or scleral icterus. Oral mucosa membrane is moist. No pharyngeal erythema or thrush. NECK: Trachea is central. No thyromegaly. LUNGS: Unlabored breathing. Clear to auscultation anteriorly. HEART: S1, S2. Regular rate and rhythm. ABDOMEN: Soft, no tenderness. No guarding, no rigidity. EXTREMITIES: No edema feet. SKIN EXAMINATION: The right hand little finger is swollen and red and painful, tender to touch, slightly indurated, but no drainage. NEUROLOGICAL: The patient is awake, alert, oriented x3. Mood and affect normal. LABS: BUN of 23, creatinine 1.0. Hemoglobin is 13, white count 10.4. Sedimentation rate was 29. UA has been negative. DIAGNOSTIC IMPRESSION AND PLAN: Patient with right lateral finger cellulitis and possible abscess, likely from a gram- positive skin zion; however, in view of underlying diabetes, a gram-negative infection entirely excluded. The patient has not been on antibiotic in the recent past could be sensitive pathogen such as a strep or staph. PLAN: 1. Blood cultures have been obtained to make sure the patient is not bacteremic. 2. Await drainage of this abscess tomorrow at which time deep culture should be obtained. 3. Unasyn 3 g every 6 hours. 4. We will follow her clinical condition and culture to further adjust medication if needed. Thank you for this consultation. Will follow this patient along with you. MMODL / IJN: [id number] /
[2017-12-20] MEDS ORDERED: PANTOPRAZOLE 40 MG TABLET PO SCH (07:30)
[2017-12-20] MEDS: INSULIN ASPART 100 UNIT/ML 1 ML 10 ML VIAL SQ SCH ×4 (07:35→21:37)
[2017-12-20] MEDS: HEPARIN SODIUM,PORCINE 5,000 UNIT/ML 1 ML VIAL SQ SCH ×2 (07:36→19:43)
[2017-12-20] MEDS: metFORMIN 500 MG TAB PO SCH ×2 (07:39→17:14)
[2017-12-20] MEDS: GLIMEPIRIDE 4 MG TAB PO SCH ×2 (07:39→17:14)
[2017-12-20] MEDS: PANTOPRAZOLE 40 MG TABLET PO SCH (07:40)
[2017-12-20] MEDS: ATORVASTATIN 10 MG TAB PO SCH (07:40)
[2017-12-20] MEDS: SERTRALINE 50 MG TAB PO SCH (07:40)
[2017-12-20 07:52] LABS: Glucose,Whole Blood 72 mg/dL (75-99)
[2017-12-20] MEDS: SYMBICORT 80-4.5 MCG INHALER INHALATION SCH ×2 (07:52→20:35)
[2017-12-20] MEDS: SODIUM CHLORIDE 0.9% 1,000 ML IV SCH (08:12)
[2017-12-20] MEDS ORDERED: NON-FORMULARY DRUG (Turmeric Root Extract [Turmeric] 500 MG) PO SCH (09:00)
[2017-12-20 09:07] LABS: Basophils # (A) 0.1 k/uL (0-0.2); Basophils % (A) 1 %; Eosinophils # (A) 0.2 k/uL (0-0.7); Eosinophils % (A) 2 %; HCT 37.3 % (34.0-46.0); HGB 11.6 gm/dL (11.4-16.0); Lymphocytes # (A) 1.6 k/uL (1.0-4.8); Lymphocytes % (A) 21 %; MCH 27.7 pg (25.0-35.0); MCHC 31.1 g/dL (31.0-37.0); Mean Platelet Volume 7.6; Monocytes # (A) 0.7 k/uL (0-1.0); Monocytes % (A) 9 %; Neutrophils # (A) 4.9 k/uL (1.3-7.7); Neutrophils % (A) 64 %; Platelet Count 218 k/uL (150-450); RBC 4.19 m/uL (3.80-5.40); RDW 12.9 % (11.5-15.5); WBC 7.7 k/uL (3.8-10.6)
[2017-12-20 09:23] LABS: Calcium 9.6 mg/dL (8.4-10.2); Potassium 4.4 mmol/L (3.5-5.1)
--- NOTE | 2017-12-20 10:15 | P.PN ---
Subjective Progress Note Date: 12/20/17 The patient is slightly improved this morning continues to have pain in her right small finger. She denies fevers or chills. Objective - Vital Signs Vital signs: Vital Signs Temp 98.2 F 12/20/17 07:00 Pulse 76 12/20/17 07:00 Resp 16 12/20/17 07:00 BP 141/65 12/20/17 07:00 Pulse Ox 92 L 12/20/17 07:00 Intake & Output 12/19/17 12/20/17 12/20/17 18:59 06:59 18:59 Weight 97 kg Other: Voiding Method Toilet # Voids 0 3 # Bowel Movements 0 - Exam I focused examination of the right hand was conducted. On inspection there is mild swelling and erythema diffusely throughout the small finger. There are no open wounds. There is no palpable fluctuance. There is tenderness both volarly and dorsally. There is discomfort with passive range of motion. There is no ascending lymphangitis. - Labs CBC & Chem 7: 12/20/17 08:30 12/20/17 08:30 Labs: Abnormal Lab Results - Last 24 Hours (Table) 12/19/17 12/19/17 12/19/17 Range/Units 15:32 18:37 18:37 ESR 29 H (0-20) mm/hr BUN 22 H 23 H (7-17) mg/dL Creatinine 1.16 H (0.52-1.04) mg/dL Glucose 113 H (74-99) mg/dL POC Glucose (mg/dL) (75-99) mg/dL Calcium 10.4 H (8.4-10.2) mg/dL C-Reactive Protein 21.6 H (<10.0) mg/L Ur Leukocyte Esterase (Negative) Urine WBC (0-5) /hpf Amorphous Sediment (None) /hpf Urine Mucus (None) /hpf 12/19/17 12/19/17 12/20/17 Range/Units 21:00 21:09 07:33 ESR (0-20) mm/hr BUN (7-17) mg/dL Creatinine (0.52-1.04) mg/dL Glucose (74-99) mg/dL POC Glucose (mg/dL) 192 H 72 L (75-99) mg/dL Calcium (8.4-10.2) mg/dL C-Reactive Protein (<10.0) mg/L Ur Leukocyte Esterase Moderate H (Negative) Urine WBC 10 H (0-5) /hpf Amorphous Sediment Rare H (None) /hpf Urine Mucus Rare H (None) /hpf 12/20/17 Range/Units 08:30 ESR (0-20) mm/hr BUN 23 H (7-17) mg/dL Creatinine 1.10 H (0.52-1.04) mg/dL Glucose 67 L (74-99) mg/dL POC Glucose (mg/dL) (75-99) mg/dL Calcium (8.4-10.2) mg/dL C-Reactive Protein (<10.0) mg/L Ur Leukocyte Esterase (Negative) Urine WBC (0-5) /hpf Amorphous Sediment (None) /hpf Urine Mucus (None) /hpf Microbiology - Last 24 Hours (Table) 12/19/17 21:00 Urine Culture - Preliminary Urine,Voided Assessment and Plan (1) Cellulitis of finger of right hand Current Visit: No Status: Acute Code(s): L03.011 - CELLULITIS OF RIGHT FINGER SNOMED Code(s): 99674749 Plan: The patient is slightly improved this morning on IV antibiotics. I saw her in the office yesterday and recommended admission to the hospital for IV antibiotics given her medical history of diabetes and renal insufficiency. Since she has slightly improved I recommend continued IV antibiotics for an additional 24 hours and reevaluation tomorrow morning. If she fails to improve or worsens I'll perform an I&D tomorrow morning, but at this time I'd recommend continued IV antibiotics and observation.
[2017-12-20 11:13] LABS: Glucose,Whole Blood 79 mg/dL (75-99)
[2017-12-20] MEDS: ASCORBIC ACID 500 MG TAB PO SCH (11:30)
[2017-12-20] MEDS: FERROUS SULFATE 325 MG TAB PO SCH (11:30)
--- NOTE | 2017-12-20 16:49 | PN ---
PROGRESS NOTE DATE OF SERVICE: 12/20/2017. REASON FOR FOLLOWUP: Right little finger cellulitis, possible abscess. INTERVAL HISTORY: The patient is afebrile. Pain and swelling to the right little finger has slightly decreased. The patient denies having any chest pain, shortness of breath or cough. No abdominal pain or diarrhea. EXAMINATION: Blood pressure 119/55 with a pulse of 80, temperature 98. She is 91% on room air. General description is an elderly female up in the bed in no distress. RESPIRATORY SYSTEM: Unlabored breathing. Clear to auscultation anteriorly. HEART: S1, S2. Regular rate and rhythm. ABDOMEN: Soft, no tenderness. The right fifth finger swelling and redness has decreased. finisher card tender to touch though. LABS: Hemoglobin is 11.2, white count 7.7, BUN of 23, creatinine 1.10. DIAGNOSTIC IMPRESSION AND PLAN: Patient with right 5th finger cellulitis, concern for possible abscess, seemed to have clinical improvement with IV Unasyn. Will continue for another 24-48 hours. We will re-evaluate the patient tomorrow. Continue supportive care. MMODL / IJN: [id number] /
[2017-12-20 17:05] LABS: Glucose,Whole Blood 61 mg/dL (75-99)
[2017-12-20 17:36] LABS: Glucose,Whole Blood 89 mg/dL (75-99)
--- NOTE | 2017-12-20 18:19 | PN ---
PROGRESS NOTE DATE OF SERVICE: 12/20/2017 This 72-year-old woman is admitted with pain and swelling of the right little finger, being closely monitored. This swelling is more localized distally at this time. The patient also had joint deformities and the C-reactive protein is 21.6. Uric acid is 7. UA is noted. The patient is on broad-spectrum IV antibiotics, including g possibly gram-negative coverage. Orthopedic, Infectious Disease following the patient. No chest pain. No palpitations. No fever. PHYSICAL EXAM: Alert, oriented x3. Pulse 80, blood pressure 119/65, respirations 16, temperature 98 degrees, pulse ox 91% on room air. HEENT: Conjunctivae normal. Oral mucosa moist. NECK: No jugular venous distention. No carotid bruits. No lymph node enlargement. CARDIOVASCULAR: S1, S2 muffled. RESPIRATORY: Breath sounds diminished in the bases. No rhonchi. No crackles. ABDOMEN: Soft, nontender. LEGS: No edema. No swelling. RIGHT LITTLE FINGER: Tender; erythema, especially over the distal part. NERVOUS SYSTEM: No focal deficits. LAB STUDIES: At this time shows WBC 11.7, hemoglobin is 11.1. Creatinine is 1.1. ASSESSMENT: 1. Acute cellulitis of the right little finger with failure of outpatient treatment. 2. Increased creatinine with mild acute renal failure. 3. Increased calcium. 4. History of asthma, chronic obstructive pulmonary disease. 5. Cerebrovascular accident, transient ischemic attack. 6. Diabetes mellitus type 2. 7. History of deep vein thrombosis. 8. Hypertension. 9. Hyperlipidemia. 10.History of degenerative joint disease. 11.History of memory impairment. 12.Sleep apnea. 13.Anemia. 14.History of back surgery. 15.History of depression. 16.Remote history of nicotine dependence. RECOMMENDATIONS AND DISCUSSION: Recommend to continue current medical management. Continue with broad-spectrum IV antibiotics. Follow the cultures. Otherwise, avoid nephrotoxic medications. Patient is on IV Unasyn at this time. Will repeat labs, continue to monitor. Follow closely with closely with orthopedic surgery, Dr. Bill and as well as infectious disease, Dr. Pace. Further recommendations to follow. MMODL / IJN: [id number] /
[2017-12-20 18:45] LABS: Hemoglobin A1C 7.2 % (4.0-6.0)
[2017-12-20] MEDS: ASPIRIN 81 MG PO SCH (19:43)
[2017-12-20] MEDS: PSYLLIUM HUSK 100% 6 GM PACKET PO SCH (19:43)
[2017-12-20] MEDS: FENOFIBRATE 160 MG TAB PO SCH (19:43)
[2017-12-20 20:54] LABS: Glucose,Whole Blood 117 mg/dL (75-99)
[2017-12-20] MEDS: INSULIN DETEMIR 100 UNIT/ML 10 ML VIAL SQ SCH (21:36)
[2017-12-21] MEDS: SODIUM CHLORIDE 0.9% 1,000 ML IV SCH (05:09)
[2017-12-21] MEDS: AMPICILLIN-SULBACTAM 3 GM in SODIUM CHLORIDE 0.9% 100 ML IVPB SCH ×4 (05:12→23:57)
[2017-12-21 07:06] LABS: Glucose,Whole Blood 114 mg/dL (75-99)
[2017-12-21] MEDS: INSULIN ASPART 100 UNIT/ML 1 ML 10 ML VIAL SQ SCH ×4 (07:56→20:47)
[2017-12-21] MEDS: HEPARIN SODIUM,PORCINE 5,000 UNIT/ML 1 ML VIAL SQ SCH ×2 (07:57→20:47)
[2017-12-21] MEDS: PANTOPRAZOLE 40 MG TABLET PO SCH (07:59)
[2017-12-21] MEDS: metFORMIN 500 MG TAB PO SCH ×2 (07:59→17:13)
[2017-12-21] MEDS: SERTRALINE 50 MG TAB PO SCH (07:59)
[2017-12-21] MEDS: ATORVASTATIN 10 MG TAB PO SCH (07:59)
[2017-12-21] MEDS: GLIMEPIRIDE 4 MG TAB PO SCH ×2 (07:59→17:13)
[2017-12-21] MEDS: HYDROmorphone 1 MG/ML 1 ML SYRINGE IVP PRN ×3 (08:01→20:56)
[2017-12-21 08:21] LABS: Basophils % (A) 1 %; Eosinophils # (A) 0.1 k/uL (0-0.7); Eosinophils % (A) 2 %; HGB 11.2 gm/dL (11.4-16.0); Lymphocytes # (A) 1.3 k/uL (1.0-4.8); Lymphocytes % (A) 23 %; MCH 28.3 pg (25.0-35.0); MCHC 32.2 g/dL (31.0-37.0); Monocytes # (A) 0.5 k/uL (0-1.0); Monocytes % (A) 10 %; Neutrophils # (A) 3.3 k/uL (1.3-7.7); Neutrophils % (A) 60 %; Platelet Count 212 k/uL (150-450); RBC 3.97 m/uL (3.80-5.40); RDW 12.9 % (11.5-15.5); WBC 5.5 k/uL (3.8-10.6)
[2017-12-21 08:27] LABS: Calcium 9.3 mg/dL (8.4-10.2); Potassium 4.2 mmol/L (3.5-5.1)
[2017-12-21] MEDS: SYMBICORT 80-4.5 MCG INHALER INHALATION SCH ×2 (08:31→20:53)
--- NOTE | 2017-12-21 09:42 | P.PN ---
Subjective Progress Note Date: 12/21/17 The patient reports minimal improvement since yesterday. She continues to have pain and swelling in her finger. She denies fevers or chills. Objective - Vital Signs Vital signs: Vital Signs Temp 97.1 F L 12/21/17 06:26 Pulse 76 12/21/17 06:26 Resp 18 12/21/17 06:26 BP 113/50 12/21/17 06:26 Pulse Ox 92 L 12/21/17 06:26 Intake & Output 12/20/17 12/21/17 12/21/17 18:59 06:59 18:59 Other: Voiding Method Toilet # Voids 3 3 # Bowel Movements 0 - Exam A focused examination of the right hand was conducted. On inspection there is fusiform swelling and erythema of the small finger. There is exquisite tenderness along the paronychial fold of the nail. There is mild tenderness over the volar aspect of the finger. There is no drainage. - Labs CBC & Chem 7: 12/21/17 07:52 12/21/17 07:52 Labs: Abnormal Lab Results - Last 24 Hours (Table) 12/20/17 12/20/17 12/20/17 Range/Units 08:30 08:30 17:02 Hgb (11.4-16.0) gm/dL BUN 23 H (7-17) mg/dL Creatinine 1.10 H (0.52-1.04) mg/dL Glucose 67 L (74-99) mg/dL POC Glucose (mg/dL) 61 L (75-99) mg/dL Hemoglobin A1c 7.2 H (4.0-6.0) % 12/20/17 12/21/17 12/21/17 Range/Units 20:52 07:04 07:52 Hgb 11.2 L (11.4-16.0) gm/dL BUN (7-17) mg/dL Creatinine (0.52-1.04) mg/dL Glucose (74-99) mg/dL POC Glucose (mg/dL) 117 H 114 H (75-99) mg/dL Hemoglobin A1c (4.0-6.0) % 12/21/17 Range/Units 07:52 Hgb (11.4-16.0) gm/dL BUN 18 H (7-17) mg/dL Creatinine 1.08 H (0.52-1.04) mg/dL Glucose 105 H (74-99) mg/dL POC Glucose (mg/dL) (75-99) mg/dL Hemoglobin A1c (4.0-6.0) % Microbiology - Last 24 Hours (Table) 12/19/17 21:00 Urine Culture - Final Urine,Voided 12/19/17 15:32 Blood Culture - Preliminary Blood No Growth after 24 hours Assessment and Plan (1) Cellulitis of finger of right hand Current Visit: No Status: Acute Code(s): L03.011 - CELLULITIS OF RIGHT FINGER SNOMED Code(s): 90015453 Plan: The patient has not improved despite 48 hours of IV antibiotics. She continues to have pain and exquisite tenderness mostly over the paronychial fold. We discussed continued observation versus getting an MRI versus performing an I&D in the operating room. Since she has not improved and due to her medical problems I recommended an I&D. The patient agrees with this. We'll plan on performing an I&D this morning and taking deep cultures.
[2017-12-21] MEDS ORDERED: fentaNYL (PF) 50 MCG/ML 2 ML AMP ONE (10:53)
[2017-12-21] MEDS ORDERED: MIDAZOLAM 2 MG/2 ML VIAL ONE (10:53)
[2017-12-21] MEDS ORDERED: PROPOFOL 10 MG/ML 20 ML VIAL IV ONE (10:53)
[2017-12-21] MEDS ORDERED: LIDOCAINE 1% INJ 10MG/ML (20 ML MDV) ONE (10:53)
[2017-12-21] MEDS ORDERED: IV FLUID CONTINUATION 800 ML IV ONE (10:53)
[2017-12-21] MEDS ORDERED: LIDOCAINE 2% INJ 20 MG/ML SQ ONE (11:05)
--- NOTE | 2017-12-21 11:33 | P.OP ---
Date of Procedure: 12/21/17 Preoperative Diagnosis: 1. Right small finger cellulitis 2. Type 2 diabetes 3. Chronic kidney disease Postoperative Diagnosis: 1. Right small finger cellulitis with paronychia abscess 2. Type 2 diabetes 3. Chronic kidney disease Procedure(s) Performed: 1. Incision and drainage of right small finger paronychial abscess 2. Irrigation of right small finger paronychial abscess Anesthesia: MAC Surgeon: Barry Bill IV fluids (ml): 300 Pathology: other (Deep cultures sent) Condition: stable Disposition: PACU Indications for Procedure: The patient is a very pleasant 72-year-old female with multiple medical problems including type 2 diabetes and chronic kidney disease who presented to my office on Friday with right small finger pain, erythema and warmth. She was admitted to the hospital under the care of internal medicine. She was started on IV antibiotics and has not improved over the last 48 hours. This morning we decided to take her to the operating room for an incision and drainage of her small finger. She understands the potential risks and complications of surgery including but not limited to risk of anesthesia, risk of damage to local blood vessels or nerves, risk of continued infection, risk of persistent infection, risk of worsening infection, risk of need for further surgery including amputation. She understands that she is at an increased risk of having a complication due to her multiple medical problems. She provided her verbal and written consent to go forward with surgery. Operative Findings: There is a small amount of cloudy fluid released from the paronychial fold over the dorsal aspect of the small finger. Description of Procedure: The patient was identified in preoperative holding and the correct right small finger was marked with my initials. I reviewed the consent form with the patient and all of her questions were answered. She was then brought back to the operating room. She was positioned in the OR on her gurney with an arm board under the right arm. A timeout was performed identifying the correct patient, operative extremity, and procedure. A digital block was performed with 2% lidocaine at the base of the small finger. The arm was then elevated for 2 minutes and the tourniquet was inflated. On inspection of the finger there was fusiform swelling and erythema over the distal aspect of the finger with the area of maximal erythema and swelling around the paronychial fold. I made a small oblique incision at the radial base of the nail. The paronychial fold was elevated and there was a small amount of cloudy fluid which was swabbed and sent for cultures. I used a pair of small dissecting scissors to make sure that the area of fluid was completely evacuated. There is also swelling and erythema over the volar surface of the distal phalanx. Due to the patient's multiple medical problems I wanted to make sure I adequately decompressed all areas of pus. A high lateral incision was made over the ulnar border distal phalanx. A pair of small dissecting scissors was used to open up the pulp over the distal phalanx. A small amount of cloudy fluid was once again evacuated. This was swabbed and sent for cultures. Both wounds were copiously irrigated with sterile saline using cystoscopy tubing. The wounds were loosely closed with 3-0 nylon. The tourniquet was let down. Clinically the finger appeared improved after decompression of the abscess. A sterile dressing was applied. The patient was awoken from her sedation and transferred to PACU having tolerated the procedure well. Plan: The patient can have a dressing change on postoperative day #1 and then should start twice daily warm water soaks and whirlpool treatments. I will defer to infectious disease and internal medicine for choice of antibiotic, duration of treatment, and route of administration. I have no plans for repeat I&D of the finger at this time, but if she fails to improve I am available should she need a second surgical debridement.
[2017-12-21 11:41] LABS: Glucose,Whole Blood 107 mg/dL (75-99)
[2017-12-21] MEDS: ASCORBIC ACID 500 MG TAB PO SCH (12:07)
[2017-12-21] MEDS: FERROUS SULFATE 325 MG TAB PO SCH (12:07)
[2017-12-21 16:59] LABS: Glucose,Whole Blood 106 mg/dL (75-99)
[2017-12-21 20:47] LABS: Glucose,Whole Blood 199 mg/dL (75-99)
[2017-12-21] MEDS: FENOFIBRATE 160 MG TAB PO SCH (20:47)
[2017-12-21] MEDS: ASPIRIN 81 MG PO SCH (20:47)
[2017-12-21] MEDS: INSULIN DETEMIR 100 UNIT/ML 10 ML VIAL SQ SCH (20:48)
[2017-12-21] MEDS: PSYLLIUM HUSK 100% 6 GM PACKET PO SCH (20:52)
[2017-12-21] MEDS: IPRATROPIUM-ALBUTEROL 3 ML NEB INHALATION PRN (20:53)
--- NOTE | 2017-12-21 22:41 | PN ---
PROGRESS NOTE DATE OF SERVICE: 12/21/2017. INTERVAL HISTORY: This 72-year-old woman who was admitted with infection of the right little finger underwent incision and drainage of the right small finger paronychial abscess and irrigation right small finger paronychial abscess by Dr. Bill. No chest pain. No palpitations. No fever. Patient on broad IV antibiotics. Alert and oriented times three. Pulse 78, blood pressure 120/69, respiration is 16, temperature 98.2, pulse ox 94% room air. HEENT is conjunctivae normal. Oral mucosa moist. Neck is no jugular venous distention. No carotid bruit. No lymph node enlargement. Cardiovascular: S1, S2 muffled. Respiratory: Breath sounds diminished in the bases. No rhonchi, no crackles. ABDOMEN: Soft, nontender. Legs are no edema and no swelling. Central nervous system: No focal deficits. Examination of the right arm status post surgery. LABS: WBC 4.2, hemoglobin 11.2. Creatinine 1.08. ASSESSMENT: 1. Acute cellulitis of the right little finger with paronychia with failure of outpatient treatment, status post incision and drainage. 2. Increased creatinine with mild acute renal failure. 3. Increased calcium. 4. History of asthma, chronic obstructive pulmonary disease. 5. Cerebrovascular accident, transient ischemic attack history. 6. Diabetes type 2. 7. History of deep vein thrombosis. 8. Hypertension. 9. Hyperlipidemia. 10.History degenerative joint disease. 11.History of memory impairment. 12.Sleep apnea. 13.History of anemia. 14.History of back surgery. 15.History of depression. 16.Remote history of nicotine dependence. RECOMMENDATIONS AND DISCUSSION: Recommend to continue current medications, management and symptomatic treatment. Continue with broad-spectrum IV antibiotics. Await cultures. Closely follow up with Infectious Disease. Further recommendations to follow. Repeat labs. Further recommendations to follow. MMODL / IJN: [id number] /
--- NOTE | 2017-12-21 23:26 | PN ---
PROGRESS NOTE DATE OF SERVICE: 12/21/2017 REASON FOR FOLLOW UP: Right little finger abscess and cellulitis. INTERVAL HISTORY: The patient is afebrile. The patient taken to the OR, status post drainage of the abscess. The patient's pain is currently controlled. The patient denies having any chest pain, shortness of breath. No cough. No abdominal pain. No diarrhea. EXAMINATION: Blood pressure is 120/69. Pulse of 78, temperature 98.8. She is 92% on room air. General description is an elderly female up in the bed in no distress. Respiratory system: Unlabored breathing. Clear to auscultation anteriorly. Heart S1, S2. Regular rate and rhythm. Abdomen soft, no tenderness. Right middle finger is currently dressed up. No obvious drainage on the dressing. LABS: Hemoglobin 11.2, white count 5.5 BUN of 18, creatinine 1.08. Blood cultures negative. OR cultures collected currently pending. DIAGNOSTIC IMPRESSION AND PLAN: Patient with right fifth toe abscess and cellulitis, status post drainage. We will keep the patient on Unasyn while waiting for the culture to finalize to determine discharge antibiotics. Continue supportive care. MMODL / IJN: [id number] /
[2017-12-22] MEDS: SODIUM CHLORIDE 0.9% 1,000 ML IV SCH (00:12)
[2017-12-22] MEDS: AMPICILLIN-SULBACTAM 3 GM in SODIUM CHLORIDE 0.9% 100 ML IVPB SCH ×3 (05:06→18:13)
[2017-12-22] MEDS: SYMBICORT 80-4.5 MCG INHALER INHALATION SCH ×2 (07:34→19:42)
[2017-12-22 07:39] LABS: Glucose,Whole Blood 104 mg/dL (75-99)
[2017-12-22] MEDS: INSULIN ASPART 100 UNIT/ML 1 ML 10 ML VIAL SQ SCH ×4 (07:47→21:53)
[2017-12-22] MEDS: SERTRALINE 50 MG TAB PO SCH (07:50)
[2017-12-22] MEDS: metFORMIN 500 MG TAB PO SCH ×2 (07:50→18:13)
[2017-12-22] MEDS: GLIMEPIRIDE 4 MG TAB PO SCH ×2 (07:50→18:13)
[2017-12-22] MEDS: PANTOPRAZOLE 40 MG TABLET PO SCH (07:50)
[2017-12-22] MEDS: HEPARIN SODIUM,PORCINE 5,000 UNIT/ML 1 ML VIAL SQ SCH ×2 (07:51→21:44)
[2017-12-22] MEDS: ATORVASTATIN 10 MG TAB PO SCH (07:51)
[2017-12-22 09:42] LABS: Calcium 9.1 mg/dL (8.4-10.2); Potassium 4.1 mmol/L (3.5-5.1)
[2017-12-22] MEDS: FERROUS SULFATE 325 MG TAB PO SCH (11:21)
[2017-12-22] MEDS: ASCORBIC ACID 500 MG TAB PO SCH (11:21)
[2017-12-22 11:22] LABS: Basophils % (A) 1 %; Eosinophils # (A) 0.1 k/uL (0-0.7); Eosinophils % (A) 2 %; HCT 35.3 % (34.0-46.0); HGB 11.6 gm/dL (11.4-16.0); Lymphocytes # (A) 1.2 k/uL (1.0-4.8); Lymphocytes % (A) 22 %; MCH 28.9 pg (25.0-35.0); MCHC 32.7 g/dL (31.0-37.0); MCV 88.5 fL (80.0-100.0); Mean Platelet Volume 7.9; Monocytes # (A) 0.7 k/uL (0-1.0); Monocytes % (A) 12 %; Neutrophils # (A) 3.5 k/uL (1.3-7.7); Neutrophils % (A) 62 %; Platelet Count 215 k/uL (150-450); RBC 3.99 m/uL (3.80-5.40); RDW 12.8 % (11.5-15.5); WBC 5.7 k/uL (3.8-10.6)
[2017-12-22 12:10] LABS: Glucose,Whole Blood 128 mg/dL (75-99)
--- NOTE | 2017-12-22 14:40 | P.PN ---
Subjective Progress Note Date: 12/22/17 Principal diagnosis: S/P Incision and drainage of right small finger paronychial abscess Patient seen at bedside today. She is s/p Incision and drainage of right small finger paronychial abscess. She feels improved. She has no new complaints. Objective - Vital Signs Vital signs: Vital Signs Temp 97.5 F L 12/22/17 06:10 Pulse 80 12/22/17 06:10 Resp 16 12/22/17 08:50 BP 142/90 12/22/17 06:10 Pulse Ox 94 L 12/22/17 06:10 Intake & Output 12/21/17 12/22/17 12/22/17 18:59 06:59 18:59 Intake Total 150 240 Output Total 5 Balance 145 240 Intake: IV 150 Oral 240 Output: Estimated Blood Loss 5 Other: Voiding Method Toilet # Voids 4 3 3 - Exam Right hand: Healing surgical wound right little finger. No active bleeding or drainage. NVI throughout all digits. Less than 2 sec cap refill. - Constitutional General appearance: Present: no acute distress - Labs CBC & Chem 7: 12/22/17 08:53 12/22/17 08:53 Labs: Abnormal Lab Results - Last 24 Hours (Table) 12/21/17 12/21/17 12/22/17 Range/Units 16:57 20:41 07:22 Chloride (98-107) mmol/L Glucose (74-99) mg/dL POC Glucose (mg/dL) 106 H 199 H 104 H (75-99) mg/dL 12/22/17 12/22/17 Range/Units 08:53 12:09 Chloride 108 H (98-107) mmol/L Glucose 158 H (74-99) mg/dL POC Glucose (mg/dL) 128 H (75-99) mg/dL Microbiology - Last 24 Hours (Table) 12/21/17 11:20 Gram Stain - Preliminary Finger - Right Fifth Wound Culture - Preliminary 12/21/17 11:20 Anaerobic Culture - Preliminary Finger - Right Fifth 12/19/17 15:32 Blood Culture - Preliminary Blood No Growth after 48 hours Assessment and Plan (1) Cellulitis of finger of right hand Narrative/Plan: Continue wound care, pain management and medical management. BID warm soapy soaks. Appreciate ID recommendations Current Visit: No Status: Acute Priority: Medium Code(s): L03.011 - CELLULITIS OF RIGHT FINGER SNOMED Code(s): 74441290 Time with Patient: Less than 30
[2017-12-22 17:04] LABS: Glucose,Whole Blood 103 mg/dL (75-99)
[2017-12-22] MEDS: HYDROcodone/APAP 5-325MG 1 EACH TAB PO PRN (19:46)
[2017-12-22 20:43] LABS: Glucose,Whole Blood 159 mg/dL (75-99)
[2017-12-22] MEDS: ASPIRIN 81 MG PO SCH (21:44)
[2017-12-22] MEDS: FENOFIBRATE 160 MG TAB PO SCH (21:44)
[2017-12-22] MEDS: INSULIN DETEMIR 100 UNIT/ML 10 ML VIAL SQ SCH (21:53)
[2017-12-22] MEDS: PSYLLIUM HUSK 100% 6 GM PACKET PO SCH (22:00)
--- NOTE | 2017-12-22 23:32 | PN ---
PROGRESS NOTE DATE OF SERVICE: 12/22/2017. REASON FOR FOLLOWUP: Right little finger abscess and cellulitis. INTERVAL HISTORY: The patient is currently afebrile. She is feeling better. Breathing comfortably. Pain to the right little finger is currently decreased in intensity. Denies having any chest pain, shortness of breath or cough. No abdominal pain and no diarrhea. EXAMINATION: Blood pressure 135/75 with a pulse of 75, temperature 98.3. She is 94% on room air. General description is the patient is an elderly female up in the bed in no distress. RESPIRATORY SYSTEM: Unlabored breathing, clear to auscultation anteriorly. HEART: S1, S2. Regular rate and rhythm. ABDOMEN: Soft, no tenderness. Right finger is currently dressed up. No obvious drainage on the dressing. LABS: Hemoglobin is 11.7, white count 5.7, BUN of 13, creatinine 0.91. The little finger cultures currently is pending. DIAGNOSTIC IMPRESSION AND PLAN: Patient with right fifth finger abscess and cellulitis, status post drainage. Currently on Unasyn that will be continued while waiting for the culture to finalize to determine discharge antibiotics. Continue supportive care. MMODL / IJN: [id number] /
[2017-12-23] MEDS: AMPICILLIN-SULBACTAM 3 GM in SODIUM CHLORIDE 0.9% 100 ML IVPB SCH ×4 (01:10→17:39)
[2017-12-23] MEDS: SODIUM CHLORIDE 0.9% 1,000 ML IV SCH ×2 (01:13→17:42)
[2017-12-23] MEDS: HEPARIN SODIUM,PORCINE 5,000 UNIT/ML 1 ML VIAL SQ SCH ×2 (07:18→21:34)
[2017-12-23] MEDS: SERTRALINE 50 MG TAB PO SCH (07:19)
[2017-12-23] MEDS: PANTOPRAZOLE 40 MG TABLET PO SCH (07:19)
[2017-12-23] MEDS: ATORVASTATIN 10 MG TAB PO SCH (07:19)
[2017-12-23] MEDS: GLIMEPIRIDE 4 MG TAB PO SCH ×2 (07:19→17:39)
[2017-12-23] MEDS: metFORMIN 500 MG TAB PO SCH ×2 (07:19→17:39)
[2017-12-23] MEDS: INSULIN ASPART 100 UNIT/ML 1 ML 10 ML VIAL SQ SCH ×4 (07:19→21:36)
[2017-12-23 07:23] LABS: Glucose,Whole Blood 80 mg/dL (75-99)
[2017-12-23] MEDS: SYMBICORT 80-4.5 MCG INHALER INHALATION SCH ×2 (08:06→20:04)
[2017-12-23 08:27] LABS: Basophils % (A) 1 %; Eosinophils # (A) 0.1 k/uL (0-0.7); Eosinophils % (A) 2 %; HCT 39.3 % (34.0-46.0); HGB 12.6 gm/dL (11.4-16.0); Lymphocytes # (A) 1.6 k/uL (1.0-4.8); Lymphocytes % (A) 28 %; MCHC 31.9 g/dL (31.0-37.0); MCV 87.8 fL (80.0-100.0); Mean Platelet Volume 7.8; Monocytes # (A) 0.5 k/uL (0-1.0); Monocytes % (A) 9 %; Neutrophils # (A) 3.1 k/uL (1.3-7.7); Neutrophils % (A) 57 %; Platelet Count 243 k/uL (150-450); RBC 4.48 m/uL (3.80-5.40); WBC 5.5 k/uL (3.8-10.6)
[2017-12-23 08:50] LABS: Calcium 9.9 mg/dL (8.4-10.2); Potassium 4.2 mmol/L (3.5-5.1)
--- NOTE | 2017-12-23 09:00 | P.PN ---
Subjective Progress Note Date: 12/23/17 Principal diagnosis: S/P Incision and drainage of right small finger paronychial abscess Patient seen at bedside today. She is s/p Incision and drainage of right small finger paronychial abscess. She feels improved. She has no new complaints. No fever chills numbness or tingling Objective - Vital Signs Vital signs: Vital Signs Temp 97.8 F 12/23/17 06:24 Pulse 73 12/23/17 06:24 Resp 16 12/23/17 06:24 BP 153/78 12/23/17 06:24 Pulse Ox 95 12/23/17 06:24 Intake & Output 12/22/17 12/23/17 12/23/17 18:59 06:59 18:59 Intake Total 240 Balance 240 Intake: Oral 240 Other: Voiding Method Toilet Toilet # Voids 3 2 - Exam Right hand: Healing surgical wound right little finger. No active bleeding or drainage. NVI throughout all digits. Less than 2 sec cap refill. No fluctuance or purulence expressed. Mild erythema. - Constitutional General appearance: Present: no acute distress - Labs CBC & Chem 7: 12/23/17 07:59 12/23/17 07:59 Labs: Abnormal Lab Results - Last 24 Hours (Table) 12/22/17 12/22/17 12/22/17 Range/Units 08:53 12:09 17:01 Sodium (137-145) mmol/L Chloride 108 H (98-107) mmol/L Glucose 158 H (74-99) mg/dL POC Glucose (mg/dL) 128 H 103 H (75-99) mg/dL 12/22/17 12/23/17 Range/Units 20:41 07:59 Sodium 147 H (137-145) mmol/L Chloride 108 H (98-107) mmol/L Glucose (74-99) mg/dL POC Glucose (mg/dL) 159 H (75-99) mg/dL Microbiology - Last 24 Hours (Table) 12/19/17 15:32 Blood Culture - Preliminary Blood No Growth after 72 hours Assessment and Plan (1) Cellulitis of finger of right hand Narrative/Plan: Continue wound care, IV antibiotics, pain management and medical management. BID warm soapy soaks. Appreciate ID recommendations. Cultures pending and negative thus far. Possible D/C tomorrow Current Visit: No Status: Acute Priority: Medium Code(s): L03.011 - CELLULITIS OF RIGHT FINGER SNOMED Code(s): 45075887 Time with Patient: Less than 30
[2017-12-23] MEDS: HYDROcodone/APAP 5-325MG 1 EACH TAB PO PRN ×3 (10:17→21:35)
[2017-12-23] MEDS ORDERED: ERGOCALCIFEROL 50,000 UNIT CAP PO SCH (12:00)
[2017-12-23] MEDS: ASCORBIC ACID 500 MG TAB PO SCH (12:05)
[2017-12-23] MEDS: FERROUS SULFATE 325 MG TAB PO SCH (12:05)
[2017-12-23 12:10] LABS: Glucose,Whole Blood 137 mg/dL (75-99)
--- NOTE | 2017-12-23 15:14 | CDI ---
Last Revision, March 2017 Documentation Clarification Form Date: 12/23/2017 3:04:37 PM From: Nelida SharifENEIDA, CCDS Admit Date: 12/19/2017 12:27:00 PM Patient Name: Mariann Rogers I Visit Number: [id number] Discharge Date: ATTENTION: The Clinical Documentation Specialists (CDI) and [facility] Coding Staff appreciate your assistance in clarifying documentation. Please respond to the clarification below the line at the bottom and electronically sign. The CDI & [facility] Coding staff will review the response and follow-up if needed. Please note: Queries are made part of the Legal Health Record. If you have any questions, please contact the author of this message via ITS. Dr. Barry JAQUEZ MD: 72 yo female, presented with acute cellulitis of the right little finger. Per the orthopedic consult documentation: CKD nos. History/Risk Factors: DM II, Hypertension. Clinical Indicators: Patient's creatinine slightly increased on 12/20 with mild acute renal failure (documented). LAB: BUN 22 - 18 - 12; Creatinine: 1.16 - 1.08 - 1.02; GFR: 47 - 52 - 55 Patients Baseline: BUN/CR/GFR: not documented, nephrology not consulted. Treatment: I&D of right little finger & Irrigation of abscess. IV Dilaudid, IV fluid, IV Cefazolin, IV Zofran, Insulin sq. Patients home medications include: Metformin, Zoloft, Omeprazole, Cozaar, Albuterol INH, Insulin sq, Amaryl, Lasix, Feosol In order to capture the severity of condition, please clarify if the condition signifies: Acute on CKD o If CKD, please stage per below: CKD Stage 1 (GFR > 90) CKD Stage 2 (GFR 60-89) CKD Stage 3 (GFR 30-59) CKD Stage 4 (GFR 15-29) CKD Stage 5 (GFR <15) Other, please specify Unable to determine Unable to Determine. MTDD
[2017-12-23 16:51] LABS: Glucose,Whole Blood 139 mg/dL (75-99)
[2017-12-23] MEDS ORDERED: VANCOMYCIN IV PER PHARMACY 1 EACH MISC MISCELLANE PRN (16:58)
[2017-12-23] MEDS ORDERED: VANCOMYCIN 2,000 MG in SODIUM CHLORIDE 0.9% 500 ML IVPB ONE (17:30)
[2017-12-23] MEDS: HYDROmorphone 1 MG/ML 1 ML SYRINGE IVP PRN ×2 (17:36→23:40)
[2017-12-23 20:49] LABS: Glucose,Whole Blood 135 mg/dL (75-99)
[2017-12-23] MEDS: FENOFIBRATE 160 MG TAB PO SCH (21:34)
[2017-12-23] MEDS: ASPIRIN 81 MG PO SCH (21:34)
[2017-12-23] MEDS: INSULIN DETEMIR 100 UNIT/ML 10 ML VIAL SQ SCH (21:36)
[2017-12-23] MEDS: PSYLLIUM HUSK 100% 6 GM PACKET PO SCH (21:36)
--- NOTE | 2017-12-23 22:22 | PN ---
PROGRESS NOTE DATE OF SERVICE: 12/23/2017 REASON FOR FOLLOWUP: Right fifth finger abscess and cellulitis. INTERVAL HISTORY: The patient is currently afebrile. She is breathing comfortably. The finger still has swelling and redness and has not shown significant improvement over the last few days with the Unasyn therapy despite drainage. The patient did have some dull aching pain, 3 to 4 out of 10, and no radiation. No drainage from it. Denies having any chest pain. No abdominal pain. No diarrhea. REVIEW OF SYSTEMS: Positive ones as mentioned in HPI. The rest of the systems have been negative. Past medical and surgical history reviewed and unchanged. Medications were reviewed. PHYSICAL EXAMINATION: Blood pressure 166/79 with a pulse of 74, temperature 97.6. She is 95% on room air. General description is an elderly female up in the bed in no distress. RESPIRATORY SYSTEM: Unlabored breathing. Clear to auscultation anteriorly. HEART: S1, S2. Regular rate and rhythm. ABDOMEN: Soft. No tenderness. Right fifth finger is currently swollen and red ABDOMEN: Soft. No tenderness. EXTREMITIES: No edema of the feet. LABS: Hemoglobin is 12.6, white count 5.5 with a BUN of 12, creatinine 1.02. DIAGNOSTIC IMPRESSION AND PLAN: Patient with right fifth finger abscess and cellulitis, status post drainage, in a patient who has not shown significant improvement with Unasyn. Will add vancomycin, Pharmacy to dose, target of 15, while waiting for the culture to finalize. Continue with supportive care. MMODL / IJN: [id number] /
[2017-12-24] MEDS: AMPICILLIN-SULBACTAM 3 GM in SODIUM CHLORIDE 0.9% 100 ML IVPB SCH ×3 (00:17→11:27)
[2017-12-24] MEDS: SYMBICORT 80-4.5 MCG INHALER INHALATION SCH ×2 (07:16→19:30)
[2017-12-24 07:28] LABS: Glucose,Whole Blood 113 mg/dL (75-99)
[2017-12-24] MEDS: INSULIN ASPART 100 UNIT/ML 1 ML 10 ML VIAL SQ SCH ×4 (07:30→21:03)
[2017-12-24] MEDS: SERTRALINE 50 MG TAB PO SCH (07:51)
[2017-12-24] MEDS: HEPARIN SODIUM,PORCINE 5,000 UNIT/ML 1 ML VIAL SQ SCH ×2 (07:51→22:05)
[2017-12-24] MEDS: metFORMIN 500 MG TAB PO SCH ×2 (07:51→17:05)
[2017-12-24] MEDS: PANTOPRAZOLE 40 MG TABLET PO SCH (07:51)
[2017-12-24] MEDS: ATORVASTATIN 10 MG TAB PO SCH (07:51)
[2017-12-24] MEDS: GLIMEPIRIDE 4 MG TAB PO SCH ×2 (07:51→17:05)
[2017-12-24 09:46] LABS: Basophils % (A) 1 %; Eosinophils # (A) 0.2 k/uL (0-0.7); Eosinophils % (A) 3 %; HCT 36.2 % (34.0-46.0); HGB 11.6 gm/dL (11.4-16.0); Lymphocytes # (A) 1.3 k/uL (1.0-4.8); Lymphocytes % (A) 27 %; MCV 87.7 fL (80.0-100.0); Mean Platelet Volume 8.1; Monocytes # (A) 0.5 k/uL (0-1.0); Monocytes % (A) 9 %; Neutrophils # (A) 2.9 k/uL (1.3-7.7); Neutrophils % (A) 58 %; Platelet Count 211 k/uL (150-450); RBC 4.13 m/uL (3.80-5.40); RDW 13.1 % (11.5-15.5)
[2017-12-24 10:04] LABS: Calcium 9.1 mg/dL (8.4-10.2); Potassium 4.3 mmol/L (3.5-5.1)
[2017-12-24] MEDS: ASCORBIC ACID 500 MG TAB PO SCH (11:27)
[2017-12-24] MEDS: FERROUS SULFATE 325 MG TAB PO SCH (11:27)
[2017-12-24] MEDS: SODIUM CHLORIDE 0.9% 1,000 ML IV SCH (12:14)
[2017-12-24 12:25] LABS: Glucose,Whole Blood 119 mg/dL (75-99)
[2017-12-24] MEDS: HYDROmorphone 1 MG/ML 1 ML SYRINGE IVP PRN ×2 (12:26→21:13)
--- NOTE | 2017-12-24 13:49 | P.PN ---
Subjective Progress Note Date: 12/24/17 Principal diagnosis: S/P Incision and drainage of right small finger paronychial abscess Patient seen at bedside today. She is s/p Incision and drainage of right small finger paronychial abscess. She feels continued improvement. She has no new complaints. No fever chills numbness or tingling Objective - Vital Signs Vital signs: Vital Signs Temp 97.3 F L 12/24/17 06:22 Pulse 76 12/24/17 06:22 Resp 17 12/24/17 06:22 BP 139/70 12/24/17 06:22 Pulse Ox 94 L 12/24/17 06:22 Intake & Output 12/23/17 12/24/17 12/24/17 18:59 06:59 18:59 Other: Voiding Method Toilet Toilet # Voids 4 1 - Exam Right hand: Healing surgical wound right little finger. No active bleeding or drainage. NVI throughout all digits. Less than 2 sec cap refill. No fluctuance or purulence expressed. Mild erythema. - Constitutional General appearance: Present: no acute distress - Labs CBC & Chem 7: 12/24/17 09:30 12/24/17 09:30 Labs: Abnormal Lab Results - Last 24 Hours (Table) 12/23/17 12/23/17 12/24/17 Range/Units 16:49 20:42 07:26 Chloride (98-107) mmol/L Creatinine (0.52-1.04) mg/dL Glucose (74-99) mg/dL POC Glucose (mg/dL) 139 H 135 H 113 H (75-99) mg/dL 12/24/17 12/24/17 Range/Units 09:30 12:23 Chloride 109 H (98-107) mmol/L Creatinine 1.07 H (0.52-1.04) mg/dL Glucose 145 H (74-99) mg/dL POC Glucose (mg/dL) 119 H (75-99) mg/dL Microbiology - Last 24 Hours (Table) 12/21/17 11:20 Anaerobic Culture - Preliminary Finger - Right Fifth 12/19/17 15:32 Blood Culture - Preliminary Blood No Growth after 96 hours 12/21/17 11:20 Gram Stain - Preliminary Finger - Right Fifth Wound Culture - Preliminary Presumptive Staph aureus Assessment and Plan (1) Cellulitis of finger of right hand Narrative/Plan: Cultures are showing staph aureus. Pending final results. Continue wound care, IV antibiotics, pain management and medical management. BID warm soapy soaks. Appreciate ID recommendations. May follow up in office with Dr. Bill for suture removal when dicharged by IM/ID. Current Visit: No Status: Acute Priority: Medium Code(s): L03.011 - CELLULITIS OF RIGHT FINGER SNOMED Code(s): 44972101 Time with Patient: Less than 30
[2017-12-24 15:38] VITALS: RESP 18
--- NOTE | 2017-12-24 15:38 | PN ---
PROGRESS NOTE DATE OF SERVICE: 12/24/2017. REASON FOR FOLLOWUP: Right little finger abscess and cellulitis. INTERVAL HISTORY: The patient is currently afebrile. She is breathing comfortably. The patient denies having any chest pain, shortness of breath or cough. The right 5th finger swelling has slightly decreased after the initiation of vancomycin yesterday and pain has decreased intensity. No diarrhea. EXAMINATION: Blood pressure 139/70 with a pulse of 73. Temperature 97.3. She is 94% on room air. General description is an elderly female up in the bed in no distress. RESPIRATORY SYSTEM: Unlabored breathing. Clear to auscultation anteriorly. HEART: S1, S2. Regular rate and rhythm. ABDOMEN: Soft, no tenderness. Right little finger swelling has decreased no drainage. LABS: Wound culture showing Staph aureus. The sensitivities are pending. DIAGNOSTIC IMPRESSION AND PLAN: Patient with right 5th finger abscess and cellulitis, status post drainage. Culture now showing Staph aureus. The patient will continue vancomycin, pharmacy to dose, while watching the kidney function closely and waiting the final sensitivity of this pathogen to determine discharge antibiotics. Continue supportive care. MMODL / IJN: [id number] /
--- NOTE | 2017-12-24 16:48 | P.PN ---
Subjective Progress Note Date: 12/22/17 Progress note being dictated for Dr. Chacko Interval history: This a 72-year-old female admitted with acute cellulitis of right middle finger with paronychia, failure of outpatient treatment, status post I&D, acute renal failure and multiple other medical issues. Maintained on IV antibiotics of Unasyn as per infectious disease. Final culture results pending. T-max 99.7. Pain improving. Renal function improving. Blood sugars controlled Denies chest pain, palpitations or increased shortness of breath. Objective - Vital Signs Vital signs: Vital Signs Temp 97.8 F 12/24/17 15:00 Pulse 76 12/24/17 15:00 Resp 18 12/24/17 15:00 BP 144/69 12/24/17 15:00 Pulse Ox 93 L 12/24/17 15:00 Intake & Output 12/23/17 12/24/17 12/24/17 18:59 06:59 18:59 Other: Voiding Method Toilet Toilet # Voids 4 1 4 - Exam PHYSICAL EXAM: VITAL SIGNS: [Temperature 97.5, pulse 80, respiratory rate 16, blood pressure 142/90, O2 sat 94% on room air] GENERAL: Sitting up in bed, no acute distress HEENT: Conjunctivae normal. eyes normal. NECK: No JVD. No thyroid enlargement. No LNs CARDIOVASCULAR: S1, S2 muffled. No murmur RESPIRATION: Breath sounds diminished in the bases. No rhonchi or crackles. No bronchial breathing. ABDOMEN: Soft, nontender . No guarding. no masses palpable.Bowel sounds heard. LEGS: No edema. no swelling PSYCHIATRY: Alert and oriented -3, mood and affect normal. NERVOUS SYSTEM: Cranial N 2-12 grossly normal. Moves all 4 limbs. Diffuse weakness No focal deficits. Skin: Right hand/right middle finger wound, status post I&D, no drainage, decreased redness, edema improving Joints: No active swelling. No inflammation. Lymphatic system. No LN neck axilla or groin. - Labs CBC & Chem 7: 12/24/17 09:30 12/24/17 09:30 Labs: Abnormal Lab Results - Last 24 Hours (Table) 12/23/17 12/23/17 12/24/17 Range/Units 16:49 20:42 07:26 Chloride (98-107) mmol/L Creatinine (0.52-1.04) mg/dL Glucose (74-99) mg/dL POC Glucose (mg/dL) 139 H 135 H 113 H (75-99) mg/dL 12/24/17 12/24/17 Range/Units 09:30 12:23 Chloride 109 H (98-107) mmol/L Creatinine 1.07 H (0.52-1.04) mg/dL Glucose 145 H (74-99) mg/dL POC Glucose (mg/dL) 119 H (75-99) mg/dL Microbiology - Last 24 Hours (Table) 12/21/17 11:20 Anaerobic Culture - Preliminary Finger - Right Fifth 12/19/17 15:32 Blood Culture - Preliminary Blood No Growth after 96 hours 12/21/17 11:20 Gram Stain - Preliminary Finger - Right Fifth Wound Culture - Preliminary Presumptive Staph aureus Assessment and Plan Assessment: -acute cellulitis of right middle finger with paronychia, failure of outpatient treatment, status post I&D, -Acute renal failure -Diabetes mellitus type 2 -Remote history of nicotine dependence -Hypertension Plan: Continue current medication regime ,monitoring and symptomatic treatment. Antibiotics as per ID, final cultures pending. Wound care as per ID/ orthopedic surgery. Close monitoring of renal function with repeat labs ordered for a.m. Discharge planning pending final culture results. The impression and plan of care has been dictated as directed. : I performed a history and examination of this patient, discussed the same with the dictator. I agree with the dictator's note ,documented as a scribe. Any additional findings or plans will be noted.
--- NOTE | 2017-12-24 16:53 | P.PN ---
Subjective Progress Note Date: 12/23/17 Progress note being dictated for Dr. Carranza Interval history: This a 72-year-old female admitted with acute cellulitis of right middle finger with paronychia, failure of outpatient treatment, status post I&D, acute renal failure and multiple other medical issues. Maintained on IV antibiotics of Unasyn as per infectious disease. Final culture results pending. T-max 99.7. Pain improving. Renal function improving. Blood sugars controlled Denies chest pain, palpitations or increased shortness of breath. 12/23/17 afebrile, final cultures pending. Vancomycin added to antibiotic regimen in addition to Unasyn as per ID. Pain improving. Sodium 147. Objective - Vital Signs Vital signs: Vital Signs Temp 97.6 F 12/23/17 14:12 Pulse 74 12/23/17 14:12 Resp 16 12/23/17 15:30 BP 166/79 12/23/17 14:12 Pulse Ox 95 12/23/17 14:12 Intake & Output 12/22/17 12/23/17 12/23/17 18:59 06:59 18:59 Intake Total 240 Balance 240 Intake: Oral 240 Other: Voiding Method Toilet Toilet Toilet # Voids 3 2 4 - Exam PHYSICAL EXAM: VITAL SIGNS: As above GENERAL: Sitting up in bed, no acute distress HEENT: Conjunctivae normal. eyes normal. NECK: No JVD. No thyroid enlargement. No LNs CARDIOVASCULAR: S1, S2 muffled. No murmur RESPIRATION: Breath sounds diminished in the bases. No rhonchi or crackles. No bronchial breathing. ABDOMEN: Soft, nontender . No guarding. no masses palpable.Bowel sounds heard. LEGS: No edema. no swelling PSYCHIATRY: Alert and oriented -3, mood and affect normal. NERVOUS SYSTEM: Cranial N 2-12 grossly normal. Moves all 4 limbs. Diffuse weakness No focal deficits. Skin: Right hand/right middle finger wound, status post I&D, no drainage, redness, edema improving Lymphatic system. No LN neck axilla or groin. - Labs CBC & Chem 7: 12/24/17 09:30 12/24/17 09:30 Labs: Abnormal Lab Results - Last 24 Hours (Table) 12/22/17 12/22/17 12/23/17 Range/Units 17:01 20:41 07:59 Sodium 147 H (137-145) mmol/L Chloride 108 H (98-107) mmol/L POC Glucose (mg/dL) 103 H 159 H (75-99) mg/dL 12/23/17 Range/Units 11:53 Sodium (137-145) mmol/L Chloride (98-107) mmol/L POC Glucose (mg/dL) 137 H (75-99) mg/dL Microbiology - Last 24 Hours (Table) 12/19/17 15:32 Blood Culture - Preliminary Blood No Growth after 72 hours Assessment and Plan Assessment: -acute cellulitis of right middle finger with paronychia, failure of outpatient treatment, status post I&D, -Acute renal failure -Diabetes mellitus type 2 -Remote history of nicotine dependence -Hypertension Plan: Continue current medication regime ,monitoring and symptomatic treatment. IV Antibiotics as per ID, final cultures pending. Close monitoring of renal function , electrolytes with repeat labs ordered for a.m. Discharge planning pending final culture results. The impression and plan of care has been dictated as directed. : I performed a history and examination of this patient, discussed the same with the dictator. I agree with the dictator's note ,documented as a scribe. Any additional findings or plans will be noted.
[2017-12-24] MEDS ORDERED: VANCOMYCIN 1,500 MG in SODIUM CHLORIDE 0.9% 250 ML IVPB SCH (17:00)
--- NOTE | 2017-12-24 17:02 | P.PN ---
Subjective Progress Note Date: 12/24/17 Progress note being dictated for Dr. Carranza Interval history: This a 72-year-old female admitted with acute cellulitis of right middle finger with paronychia, failure of outpatient treatment, status post I&D, acute renal failure and multiple other medical issues. Maintained on IV antibiotics of Unasyn as per infectious disease. Final culture results pending. T-max 99.7. Pain improving. Renal function improving. Blood sugars controlled Denies chest pain, palpitations or increased shortness of breath. 12/23/17 afebrile, final cultures pending. Vancomycin added to antibiotic regimen in addition to Unasyn as per ID. Pain improving. Sodium 147. 12/24/2017 afebrile. Significant improvement with addition of vancomycin; decreased pain/throbbing. Creatinine 1.07. Denies chest pain, palpitations or shortness of breath. Good diet intake, no nausea or vomiting. No diarrhea. Wound cultures reporting staph aureus, sensitivities pending. Objective - Vital Signs Vital signs: Vital Signs Temp 97.8 F 12/24/17 15:00 Pulse 76 12/24/17 15:00 Resp 18 12/24/17 15:00 BP 144/69 12/24/17 15:00 Pulse Ox 93 L 12/24/17 15:00 Intake & Output 12/23/17 12/24/17 12/24/17 18:59 06:59 18:59 Other: Voiding Method Toilet Toilet # Voids 4 1 4 - Exam PHYSICAL EXAM: VITAL SIGNS: As above GENERAL: Sitting up in bed, no acute distress HEENT: Conjunctivae normal. eyes normal. NECK: No JVD. No thyroid enlargement. No LNs CARDIOVASCULAR: S1, S2 muffled. No murmur RESPIRATION: Breath sounds diminished in the bases. No rhonchi or crackles. No bronchial breathing. ABDOMEN: Soft, nontender . No guarding. no masses palpable.Bowel sounds heard. LEGS: No edema. no swelling PSYCHIATRY: Alert and oriented -3, mood and affect normal. NERVOUS SYSTEM: Cranial N 2-12 grossly normal. Moves all 4 limbs. Diffuse weakness No focal deficits. Skin: Right hand/right middle finger wound, status post I&D, no drainage, decreased redness, edema improving Lymphatic system. No LN neck axilla or groin. Microbiology 12/21/17 11:20 Finger - Right Fifth Anaerobic Culture - Preliminary 12/19/17 15:32 Blood Blood Culture - Preliminary No Growth after 96 hours 12/21/17 11:20 Finger - Right Fifth Gram Stain - Preliminary 12/21/17 11:20 Finger - Right Fifth Wound Culture - Preliminary Presumptive Staph aureus 12/19/17 21:00 Urine,Voided Urine Culture - Final - Labs CBC & Chem 7: 12/24/17 09:30 12/24/17 09:30 Labs: Abnormal Lab Results - Last 24 Hours (Table) 12/23/17 12/24/17 12/24/17 Range/Units 20:42 07:26 09:30 Chloride 109 H (98-107) mmol/L Creatinine 1.07 H (0.52-1.04) mg/dL Glucose 145 H (74-99) mg/dL POC Glucose (mg/dL) 135 H 113 H (75-99) mg/dL 12/24/17 Range/Units 12:23 Chloride (98-107) mmol/L Creatinine (0.52-1.04) mg/dL Glucose (74-99) mg/dL POC Glucose (mg/dL) 119 H (75-99) mg/dL Microbiology - Last 24 Hours (Table) 12/21/17 11:20 Anaerobic Culture - Preliminary Finger - Right Fifth 12/19/17 15:32 Blood Culture - Preliminary Blood No Growth after 96 hours 12/21/17 11:20 Gram Stain - Preliminary Finger - Right Fifth Wound Culture - Preliminary Presumptive Staph aureus Assessment and Plan Assessment: -acute cellulitis of right middle finger with paronychia, failure of outpatient treatment, status post I&D, -Acute renal failure -Diabetes mellitus type 2 -Remote history of nicotine dependence -Hypertension Plan: Continue current medication regime ,monitoring and symptomatic treatment. IV Antibiotics as per ID, final sensitivities pending. Close monitoring of renal function , electrolytes with repeat labs ordered for a.m. Discharge planning pending final culture results. Increase ambulation as tolerated. The impression and plan of care has been dictated as directed. : I performed a history and examination of this patient, discussed the same with the dictator. I agree with the dictator's note ,documented as a scribe. Any additional findings or plans will be noted.
[2017-12-24 17:25] LABS: Glucose,Whole Blood 72 mg/dL (75-99)
[2017-12-24] MEDS: IPRATROPIUM-ALBUTEROL 3 ML NEB INHALATION PRN (19:30)
[2017-12-24 20:41] LABS: Glucose,Whole Blood 114 mg/dL (75-99)
[2017-12-24] MEDS: INSULIN DETEMIR 100 UNIT/ML 10 ML VIAL SQ SCH (21:09)
[2017-12-24] MEDS: PSYLLIUM HUSK 100% 6 GM PACKET PO SCH (21:11)
[2017-12-24] MEDS: ASPIRIN 81 MG PO SCH (21:12)
[2017-12-24] MEDS: FENOFIBRATE 160 MG TAB PO SCH (21:12)
[2017-12-25] MEDS: IPRATROPIUM-ALBUTEROL 3 ML NEB INHALATION PRN ×2 (07:42→11:32)
[2017-12-25] MEDS: SYMBICORT 80-4.5 MCG INHALER INHALATION SCH (07:42)
[2017-12-25 07:53] LABS: Glucose,Whole Blood 124 mg/dL (75-99)
[2017-12-25] MEDS: metFORMIN 500 MG TAB PO SCH (08:04)
[2017-12-25] MEDS: INSULIN ASPART 100 UNIT/ML 1 ML 10 ML VIAL SQ SCH ×2 (08:05→12:39)
[2017-12-25] MEDS: ATORVASTATIN 10 MG TAB PO SCH (08:05)
[2017-12-25] MEDS: PANTOPRAZOLE 40 MG TABLET PO SCH (08:05)
[2017-12-25] MEDS: SERTRALINE 50 MG TAB PO SCH (08:05)
[2017-12-25] MEDS: GLIMEPIRIDE 4 MG TAB PO SCH (08:05)
[2017-12-25] MEDS: HEPARIN SODIUM,PORCINE 5,000 UNIT/ML 1 ML VIAL SQ SCH (08:06)
[2017-12-25] MEDS: HYDROcodone/APAP 5-325MG 1 EACH TAB PO PRN (08:09)
[2017-12-25 08:20] VITALS: BP 154/81; TEMP 97.7
[2017-12-25 08:48] LABS: Calcium 9.2 mg/dL (8.4-10.2); Potassium 4.2 mmol/L (3.5-5.1)
[2017-12-25] MEDS: SODIUM CHLORIDE 0.9% 1,000 ML IV SCH (09:00)
[2017-12-25 11:41] VITALS: PULSE 80
[2017-12-25 11:45] LABS: Glucose,Whole Blood 248 mg/dL (75-99)
[2017-12-25] MEDS: ASCORBIC ACID 500 MG TAB PO SCH (11:58)
[2017-12-25] MEDS: FERROUS SULFATE 325 MG TAB PO SCH (11:58)
--- NOTE | 2017-12-25 13:45 | PN ---
PROGRESS NOTE DATE OF SERVICE: 12/25/2017. REASON FOR FOLLOWUP: Right fifth finger MSSA abscess and cellulitis. INTERVAL HISTORY: The patient is currently afebrile. She is feeling better. Breathing comfortably. Pain and swelling to the right fifth finger has improved. Denies having any chest pain, shortness of breath or cough. No abdominal pain or diarrhea. PHYSICAL EXAMINATION: On examination, blood pressure 154/81 with a pulse of 78, temperature is 97.7. She is 94% on room air. General description is an elderly female up in the bed in no distress. RESPIRATORY SYSTEM: Unlabored breathing, clear to auscultation anteriorly. HEART: S1, S2. Regular rate and rhythm. ABDOMEN: Soft, no tenderness. Right fifth finger currently dressed, no obvious drainage on the dressing. LABS: Creatinine is 1.03. Wound culture finalized with MSSA. Blood culture remains negative. DIAGNOSTIC IMPRESSION AND PLAN: Patient with MSSA right fifth finger abscess and cellulitis, status post drainage. Antibiotic will be switched to cefazolin 2 grams x1 and then discharged home on oral Keflex 500 mg p.o. q.6 hours for 10 days. Prescription sent to the pharmacy with close outpatient followup. MMODL / IJN: [id number] /
--- NOTE | 2017-12-25 14:17 | P.DS ---
Providers Date of admission: 12/19/17 12:27 Expected date of discharge: 12/25/17 Attending physician: Jania Carranza Consults: 12/19/17 12:07 Consult Physician Routine Consulting Provider: Alem Pace Consult Reason/Comments: cellulitis right little finger Do you want consulting provider notified?: Yes Placement Type Exists?: Yes 12/19/17 12:08 Consult Physician Routine Consulting Provider: Barry Bill Consult Reason/Comments: cellulitis Do you want consulting provider notified?: Already Contacted Placement Type Exists?: Yes Primary care physician: Stated None Hospital Course: Final Diagnoses: -acute cellulitis of right middle finger with paronychia, failure of outpatient treatment, status post I&D, MSSA -Acute renal failure -Diabetes mellitus type 2 -Remote history of nicotine dependence -Hypertension Hospital course:This a 72-year-old female admitted with acute cellulitis of right middle finger with paronychia, failure of outpatient treatment, status post I&D, acute renal failure and multiple other medical issues. Evaluated by both orthopedic surgery and infectious disease. Maintained on IV antibiotics of Unasyn and gentle IV fluid hydration. Significant clinical improvement. Cultures reporting MSSA. Patient has been cleared by both orthopedic surgery and infectious disease for discharge. Patient is being discharged home in a stable condition with guarded prognosis. EXAM: GENERAL: Alert and oriented 3, no acute distress CARDIOVASCULAR: S1, S2 muffled. No murmur RESPIRATION: Breath sounds diminished in the bases. No rhonchi or crackles. ABDOMEN: Soft, nontender . No guarding. no masses palpable.Bowel sounds heard. NERVOUS SYSTEM: No focal deficits. Skin: Right hand/right little finger wound, dressing clean dry and intact Microbiology 12/21/17 11:20 Finger - Right Fifth Gram Stain - Final 12/21/17 11:20 Finger - Right Fifth Wound Culture - Final Staphylococcus aureus 12/19/17 15:32 Blood Blood Culture - Preliminary No Growth after 120 hours 12/21/17 11:20 Finger - Right Fifth Anaerobic Culture - Preliminary 12/19/17 21:00 Urine,Voided Urine Culture - Final The impression and plan of care has been dictated as directed. : I performed a history and examination of this patient, discussed the same with the dictator. I agree with the dictator's note ,documented as a scribe. Any additional findings or plans will be noted. Time taken: 35 minutes Patient Condition at Discharge: Stable Plan - Discharge Summary Discharge Rx Participant: Yes New Discharge Prescriptions: New Cephalexin [Keflex] 500 mg PO Q6HR #40 cap traMADol HCL [Ultram] 50 mg PO Q6HR PRN 3 Days #12 tab PRN Reason: Pain Continue Furosemide [Lasix] 20 mg PO DAILY Atorvastatin [Lipitor] 10 mg PO DAILY metFORMIN HCL [Glucophage] 500 mg PO BID Ipratropium/Albuterol Sulfate [Combivent Respimat Inhaler] 2 puff INHALATION QID PRN PRN Reason: Dyspnea Glimepiride [Amaryl] 4 mg PO BID Fluticasone/Salmeterol [Advair 250-50 Diskus] 1 inhalation PO BID Psyllium Husk 100% [Metamucil Packet] 6 gm PO HS Ferrous Sulfate [Iron (65 MG Elemental)] 325 mg PO DAILY Insulin Glargine,Hum.rec.anlog [Lantus Solostar] 30 unit SQ HS Ascorbic Acid [Vitamin C] 500 mg PO DAILY Ergocalciferol (Vitamin D2) [Vitamin D2] 50,000 unit PO TU Fenofibrate Nanocrystallized [Fenofibrate] 145 mg PO HS Turmeric Root Extract [Turmeric] 500 mg PO DAILY Aspirin [Adult Low Dose Aspirin EC] 81 mg PO HS Focus Eye Vitamin 1 tab PO DAILY Acetaminophen [Tylenol] 500 mg PO Q4HR PRN PRN Reason: Pain Dulaglutide [Trulicity] 0.75 mg SQ Q7DAYS Omeprazole 40 mg PO DAILY Sertraline [Zoloft] 50 mg PO DAILY Discontinued Losartan [Cozaar] 25 mg PO HS Diclofenac Sodium Gel [Voltaren Gel] 2 gm TOPICAL QID PRN PRN Reason: Pain Discharge Medication List Ascorbic Acid [Vitamin C] 500 mg PO DAILY 04/29/16 [History] Aspirin [Adult Low Dose Aspirin EC] 81 mg PO HS 04/29/16 [History] Atorvastatin [Lipitor] 10 mg PO DAILY 04/29/16 [History] Ergocalciferol (Vitamin D2) [Vitamin D2] 50,000 unit PO TU 04/29/16 [History] Fenofibrate Nanocrystallized [Fenofibrate] 145 mg PO HS 04/29/16 [History] Ferrous Sulfate [Iron (65 MG Elemental)] 325 mg PO DAILY 04/29/16 [History] Fluticasone/Salmeterol [Advair 250-50 Diskus] 1 inhalation PO BID 04/29/16 [ History] Furosemide [Lasix] 20 mg PO DAILY 04/29/16 [History] Glimepiride [Amaryl] 4 mg PO BID 04/29/16 [History] Insulin Glargine,Hum.rec.anlog [Lantus Solostar] 30 unit SQ HS 04/29/16 [History ] Ipratropium/Albuterol Sulfate [Combivent Respimat Inhaler] 2 puff INHALATION QID PRN 04/29/16 [History] Psyllium Husk 100% [Metamucil Packet] 6 gm PO HS 04/29/16 [History] Turmeric Root Extract [Turmeric] 500 mg PO DAILY 04/29/16 [History] metFORMIN HCL [Glucophage] 500 mg PO BID 04/29/16 [History] Focus Eye Vitamin 1 tab PO DAILY 01/08/17 [History] Acetaminophen [Tylenol] 500 mg PO Q4HR PRN 12/19/17 [History] Dulaglutide [Trulicity] 0.75 mg SQ Q7DAYS 12/19/17 [History] Omeprazole 40 mg PO DAILY 12/19/17 [History] Sertraline [Zoloft] 50 mg PO DAILY 12/19/17 [History] Cephalexin [Keflex] 500 mg PO Q6HR #40 cap 12/25/17 [Rx] traMADol HCL [Ultram] 50 mg PO Q6HR PRN 3 Days #12 tab 12/25/17 [Rx] Follow up Appointment(s)/Referral(s): Alverto Beltran PAC [PHYSICIAN [facility]] - 01/01/18 9:30 am Sean Michaud MD [REFERRING] - 3 Days (Please call for appointment) Alem Pace MD [STAFF PHYSICIAN] - 01/05/18 2:00 pm ([place] office location. ) Ambulatory/Diagnostic Orders: Complete Blood Count w/diff [LAB.AMB] Time Frame: 3 Days, Location: None Selected Patient Instructions/Handouts: Cellulitis (DC), Type 2 Diabetes in Adults: New Diagnosis (DC), Acute Wound Care (DC) Activity/Diet/Wound Care/Special Instructions: Diabetic, cardiac diet. Activity as tolerated. Limit use of right hand and finger until follow up with ortho dr. Keep site clean and dry.
[2017-12-25] MEDS ORDERED: ceFAZolin IN SWFI 2 GM/20 ML SYRINGE IVP SCH (16:00)
[2017-12-26] MEDS ORDERED: PATIENT'S OWN MED (Dulaglutide [Trulicity] 0.75 MG) SQ SCH (09:00)
== END 2017-12-25 14:33 | disposition home or self-care (01) | DRG 580 ==
LOC: 4MS4W 12:27
PROVIDERS: ADMIT Hospitalist; ATTEND Hospitalist
PROC: 0J9J0ZZ Drainage of Right Hand Subcutaneous Tissue and Fascia, Open Approach (ICD-10-PCS; principal; 2017-12-19)
DX: L03.011 Cellulitis of right finger (principal); L02.511 Cutaneous abscess of right hand; N17.9 Acute kidney failure, unspecified; D64.9 Anemia, unspecified; E11.22 Type 2 diabetes mellitus with diabetic chronic kidney disease; E11.40 Type 2 diabetes mellitus with diabetic neuropathy, unspecified; E78.5 Hyperlipidemia, unspecified; G47.30 Sleep apnea, unspecified; H35.30 Unspecified macular degeneration; I12.9 Hypertensive chronic kidney disease with stage 1 through stage 4 chronic kidney disease, or unspecified chronic kidney disease; J44.9 Chronic obstructive pulmonary disease, unspecified; K21.9 Gastro-esophageal reflux disease without esophagitis; M17.0 Bilateral primary osteoarthritis of knee; N18.9 Chronic kidney disease, unspecified; S61.206A Unspecified open wound of right little finger without damage to nail, initial encounter; Z79.82 Long term (current) use of aspirin; Z79.899 Other long term (current) drug therapy; Z82.0 Family history of epilepsy and other diseases of the nervous system; Z82.49 Family history of ischemic heart disease and other diseases of the circulatory system; Z82.5 Family history of asthma and other chronic lower respiratory diseases; Z83.3 Family history of diabetes mellitus; Z86.718 Personal history of other venous thrombosis and embolism; Z86.73 Personal history of transient ischemic attack (TIA), and cerebral infarction without residual deficits; Z87.01 Personal history of pneumonia (recurrent); Z87.442 Personal history of urinary calculi; Z87.891 Personal history of nicotine dependence; Z79.4 Long term (current) use of insulin; Z91.041 Radiographic dye allergy status
CPT/HCPCS: 80048; 80053; 81001; 83036; 84550; 85025; 85652; 86140; 87040; 87070; 87075; 87077; 87086; 87186; 87205; 94640

== ENCOUNTER 2020-11-23 13:13 | Emergency (ER) | payer MEDICARE ==
--- NOTE | 2020-11-23 15:18 | ED ---
General Adult HPI - General Chief complaint: Shortness of Breath Stated complaint: COVID+ Time Seen by Provider: 11/23/20 15:05 Source: family, RN notes reviewed, old records reviewed Mode of arrival: wheelchair Limitations: no limitations - History of Present Illness Initial comments: Patient is a 75-year-old female who is brought to the emergency department for possible monoclonal antibody therapy for COVID-19. Patient received COVID-19 testing on Friday and it was positive. Symptoms started last Friday11/15/2020. Today is day 8 of symptoms. She states that her symptoms were worse last week, with fevers are subjective, chills, cough, dyspnea. She states that most of these symptoms have improved, and she does have a mild cough at this point. She overall is feeling improved, however was instructed by her daughter to come to the emergency department for possible monoclonal antibody therapy. She does state she feels fatigue as well as generalized joint pains still, which have been ongoing for the last week since symptoms started. There are also slightly improving at this time.. States is manageable though. She denies any chest pain or shortness breath. Denies any lightheadedness recent syncopal episodes, however does describe episodes of near-syncope within the last few months. She has never been worked up by cardiology previously, at least within the last few years. She denies any abdominal pain, nausea, vomiting. She otherwise has no acute complaints at this time. - Related Data Home Medications Medication Instructions Recorded Confirmed Ascorbic Acid [Vitamin C] 500 mg PO DAILY 04/29/16 11/23/20 Aspirin [Adult Low Dose Aspirin EC] 81 mg PO HS 04/29/16 11/23/20 Atorvastatin [Lipitor] 10 mg PO DAILY 04/29/16 11/23/20 Ergocalciferol (Vitamin D2) 50,000 unit PO Q14D 04/29/16 11/23/20 [Vitamin D2] Ferrous Sulfate [Iron (65 MG 325 mg PO DAILY 04/29/16 11/23/20 Elemental)] Glimepiride [Amaryl] 4 mg PO BID 04/29/16 11/23/20 Insulin Glargine,Hum.rec.anlog 25 unit SQ HS 04/29/16 11/23/20 [Lantus Solostar] Ipratropium/Albuterol Sulfate 2 puff INHALATION RT-QID PRN 04/29/16 11/23/20 [Combivent Respimat Inhaler] Psyllium Husk 100% [Metamucil 6 gm PO HS 04/29/16 11/23/20 Packet] Turmeric Root Extract [Turmeric] 500 mg PO DAILY 04/29/16 11/23/20 Focus Eye Vitamin 1 tab PO DAILY 01/08/17 11/23/20 Acetaminophen [Tylenol] 500 mg PO Q4HR PRN 12/19/17 11/23/20 Dulaglutide [Trulicity] 0.75 mg SQ TH 12/19/17 11/23/20 Omeprazole 40 mg PO HS 12/19/17 11/23/20 Dicyclomine [Bentyl] 20 mg PO QID PRN 11/23/20 11/23/20 Sertraline [Zoloft] 100 mg PO HS 11/23/20 11/23/20 Previous Rx's Medication Instructions Recorded Aspirin [Curtis Aspirin EC] 81 mg PO DAILY 30 Days #30 tab 11/23/20 Allergies Allergy/AdvReac Type Severity Reaction Status Date / Time Iodinated Contrast Media Allergy lightheaded, Verified 11/23/20 17:01 [Iodinated Contrast Media - nausea, Oral and] sweating Review of Systems ROS Statement: Those systems with pertinent positive or pertinent negative responses have been documented in the HPI. Review of Systems: CONST: Denies fever EYES: Denies blurry vision ENT: Denies nasal congestion C/V: Denies Chest pain RESP: Endorses cough GI: Denies abdominal pain : Denies dysuria SKIN: Denies rash. MSK: Denies joint pain. NEURO: Denies headache ROS Other: All systems not noted in ROS Statement are negative. Past Medical History Past Medical History: Asthma, Blood Disorder, COPD, CVA/TIA, Diabetes Mellitus, Deep Vein Thrombosis (DVT), Eye Disorder, GERD/Reflux, Hyperlipidemia, Hypertension, Memory Impairment, Osteoarthritis (OA), Pneumonia, Renal Disease, Sleep Apnea/CPAP/BIPAP Additional Past Medical History / Comment(s): Hx anemia,macular degeneration, kidney disease stage 3, hx kidney stones, pain to head.No deficits from CVA. No CPAP use., Herniated disc in neck. Hx pneumonia in 2002. History of Any Multi-Drug Resistant Organisms: None Reported Past Surgical History: Back Surgery, Orthopedic Surgery Additional Past Surgical History / Comment(s): Hx back fusion with rods and pins, carpal tunnel amanda, arthroscopy lt knee, 2 kidney stone surgeries. Past Anesthesia/Blood Transfusion Reactions: Motion Sickness Past Psychological History: Depression Smoking Status: Former smoker Past Alcohol Use History: None Reported Past Drug Use History: None Reported - Past Family History Mother Family Medical History: Diabetes Mellitus Father Family Medical History: COPD Brother(s) Family Medical History: Cancer Additional Family Medical History / Comment(s): prostate cancer, Sister(s) Family Medical History: Cancer, Coronary Artery Disease (CAD), Diabetes Mellitus, Renal Disease Additional Family Medical History / Comment(s): Alzheimers. General Exam - General Exam Comments Initial Comments: General: Appears in no acute distress. HEAD: Normal with no signs of head trauma. EYES: PERRLA, EOMI, conjunctiva normal, no discharge. ENT: Hearing grossly intact, normal oropharynx. RESPIRATORY: Clear breath sounds bilaterally. No wheezes, rales, or rhonchi. Patient is not hypoxic. C/V: Regular rate and rhythm. S1 and S2 auscultated, no edema, peripheral pulses 2+ and intact throughout ABD: Abd is soft, nontender, nondistended EXT: Normal range of motion, no obvious deformity SKIN: No rashes or lesions observed on exposed skin. NEURO: Alert and oriented x 4. Cranial nerves II-XII intact. No focal sensory or strength deficits. Patient ambulates with cane at baseline, and this is stable. Limitations: no limitations Course Vital Signs 11/23/20 11/23/20 11/23/20 13:59 17:07 17:54 Temperature 98.2 F 98.6 F Pulse Rate 75 64 Respiratory 18 16 16 Rate Blood Pressure 144/66 O2 Sat by Pulse 95 Oximetry Medical Decision Making - Medical Decision Making Based on the patient's presentation and physical exam, I am concerned for [place] COVID-19 infection. She does have a positive test negative do not li quincy we need to repeat the test at this time. Positive test was completed on 11/21/2020. Symptoms started 11/15/2020. She is in the window for monoclonal antibody therapy. Therefore the order form will be completed by myself and we will provide her with the monoclonal antibody therapy. She otherwise is not hypoxic. Vital signs are relatively unremarkable. However due to her persistent fatigue, despite other improving COVID-19 symptoms and never receiving cardiac workup in the past, she does have diabetes and COPD which are risk factors I did recommend that we obtain an EKG as well as troponin. She was in agreement this plan. She will be connected to continuous cardiac monitoring while she is in the department. Patient's EKG does show T-wave inversions of unknown chronicity in the lateral precordial leads. Patient continues to deny chest pain at this time. Laboratory studies are remarkable for a mild hypomagnesemia as well as a negative troponin. Remainder the labs are unremarkable. Chest x-ray reveals no acute cardiopulmonary process. I did discuss with the patient at length regarding her EKG findings. Her symptoms have been ongoing for the last 7 days and therefore only one troponin is really necessary for rule out at this time. I discussed the case with who would be the admitting physician, Dr. Joy, and we discussed at length that due to the patient's low heart score of 3, as well as a negative troponin, that despite the EKG changes in the setting of a patient who is actively asymptomatic but positive for COVID-19, achieving this really does not require admission at this time. She will follow up with cardiology an outpatient basis. I discussed this with the patient as well as her daughter who is a nurse practitioner and both were in agreement this plan. Patient will be given 325 mg of aspirin here in the department. The Patient received her monoclonal antibody treatment was observed for the appropriate amount of time. No ALLERGIC reaction was observed. She was discharged home in fair condition. Vital signs remained stable and she remained relatively asymptomatic except for mild cough throughout her stay in the emergency department. I will provide the patient with a prescription for aspirin. I instructed the patient to follow up with their PCP in the next 3 days. I provided contact information for follow [facility] with [facility]. I explained that the patient should return to the emergency department if they experience any worsening symptoms. Strict return precautions were discussed with the patient. The patient expressed understanding of these instructions. I answered all questions that the patient had. The patient was discharged home in fair condition with their prescriptions and follow up information. - Lab Data Result diagrams: 11/23/20 15:35 11/23/20 15:35 Lab Results 11/23/20 11/23/20 11/23/20 Range/Units 15:27 15:35 15:35 WBC 8.1 (3.8-10.6) k/uL RBC 4.93 (3.80-5.40) m/uL Hgb 15.0 (11.4-16.0) gm/dL Hct 43.3 (34.0-46.0) % MCV 87.9 (80.0-100.0) fL MCH 30.3 (25.0-35.0) pg MCHC 34.5 (31.0-37.0) g/dL RDW 12.7 (11.5-15.5) % Plt Count 179 (150-450) k/uL MPV 8.9 Neutrophils % 58 % Lymphocytes % 30 % Monocytes % 7 % Eosinophils % 2 % Basophils % 1 % Neutrophils # 4.7 (1.3-7.7) k/uL Lymphocytes # 2.5 (1.0-4.8) k/uL Monocytes # 0.6 (0-1.0) k/uL Eosinophils # 0.2 (0-0.7) k/uL Basophils # 0.1 (0-0.2) k/uL PT 10.1 (9.0-12.0) sec INR 0.9 (<1.2) APTT 22.2 (22.0-30.0) sec Sodium 139 (137-145) mmol/L Potassium 4.2 (3.5-5.1) mmol/L Chloride 105 (98-107) mmol/L Carbon Dioxide 21 L (22-30) mmol/L Anion Gap 13 mmol/L BUN 20 H (7-17) mg/dL Creatinine 0.68 (0.52-1.04) mg/dL Est GFR (CKD-EPI)AfAm >90 (>60 ml/min/1.73 sqM) Est GFR (CKD-EPI)NonAf 86 (>60 ml/min/1.73 sqM) Glucose 156 H (74-99) mg/dL Calcium 9.7 (8.4-10.2) mg/dL Magnesium 1.4 L (1.6-2.3) mg/dL Total Bilirubin 0.4 (0.2-1.3) mg/dL AST 36 (14-36) U/L ALT 29 (4-34) U/L Alkaline Phosphatase 111 (38-126) U/L Troponin I (0.000-0.034) ng/mL Total Protein 7.5 (6.3-8.2) g/dL Albumin 4.6 (3.5-5.0) g/dL 11/23/20 Range/Units 15:35 WBC (3.8-10.6) k/uL RBC (3.80-5.40) m/uL Hgb (11.4-16.0) gm/dL Hct (34.0-46.0) % MCV (80.0-100.0) fL MCH (25.0-35.0) pg MCHC (31.0-37.0) g/dL RDW (11.5-15.5) % Plt Count (150-450) k/uL MPV Neutrophils % % Lymphocytes % % Monocytes % % Eosinophils % % Basophils % % Neutrophils # (1.3-7.7) k/uL Lymphocytes # (1.0-4.8) k/uL Monocytes # (0-1.0) k/uL Eosinophils # (0-0.7) k/uL Basophils # (0-0.2) k/uL PT (9.0-12.0) sec INR (<1.2) APTT (22.0-30.0) sec Sodium (137-145) mmol/L Potassium (3.5-5.1) mmol/L Chloride (98-107) mmol/L Carbon Dioxide (22-30) mmol/L Anion Gap mmol/L BUN (7-17) mg/dL Creatinine (0.52-1.04) mg/dL Est GFR (CKD-EPI)AfAm (>60 ml/min/1.73 sqM) Est GFR (CKD-EPI)NonAf (>60 ml/min/1.73 sqM) Glucose (74-99) mg/dL Calcium (8.4-10.2) mg/dL Magnesium (1.6-2.3) mg/dL Total Bilirubin (0.2-1.3) mg/dL AST (14-36) U/L ALT (4-34) U/L Alkaline Phosphatase (38-126) U/L Troponin I <0.012 (0.000-0.034) ng/mL Total Protein (6.3-8.2) g/dL Albumin (3.5-5.0) g/dL - EKG Data -: EKG Interpreted by Me EKG Comments: 12-lead Electrocardiogram Interpretation Note EKG was reviewed and interpreted by myself. 12-lead ECG performed at 1548 is interpreted by me as revealing [normal sinus rhythm] at a rate of 63 beats per minute. Rodney is normal. DE interval is 176 ms, QRS duration is 80 ms, QTc is 454 ms.. There are T-wave inversions in leads V3 through V6 of unknown chronicity. There is no prior EKG for comparison.. R wave progression across the precordium was satisfactory. By my interpretation, this EKG reveals T-wave inversions of unknown chronicity. There is no prior EKG for comparison.. Disposition Clinical Impression: T wave inversion in EKG, Normal troponin, COVID-19 Disposition: HOME SELF-CARE Condition: Fair Additional Instructions: [facility] within 2 days. Discussed your case with the infusion pharmacist physician for your PCP, Dr. Joy. Prescriptions: Aspirin [Curtis Aspirin EC] 81 mg PO DAILY 30 Days #30 tab Is patient prescribed a controlled substance at d/c from ED?: No Referrals: Sean Michaud MD [Primary Care Provider] - 1-2 days [facility] [Provider Group] - 1-2 days
[2020-11-23] MEDS ORDERED: SODIUM CHLORIDE 0.9% 1,000 ML IV ONE (15:28)
[2020-11-23] MEDS ORDERED: HYDROcodone/APAP 5-325MG 1 EACH TAB PO STA (15:28)
[2020-11-23 15:44] LABS: Basophils # (A) 0.1 k/uL (0-0.2); Basophils % (A) 1 %; Eosinophils # (A) 0.2 k/uL (0-0.7); Eosinophils % (A) 2 %; HCT 43.3 % (34.0-46.0); Lymphocytes # (A) 2.5 k/uL (1.0-4.8); Lymphocytes % (A) 30 %; MCH 30.3 pg (25.0-35.0); MCHC 34.5 g/dL (31.0-37.0); MCV 87.9 fL (80.0-100.0); Mean Platelet Volume 8.9; Monocytes # (A) 0.6 k/uL (0-1.0); Monocytes % (A) 7 %; Neutrophils # (A) 4.7 k/uL (1.3-7.7); Neutrophils % (A) 58 %; Platelet Count 179 k/uL (150-450); RBC 4.93 m/uL (3.80-5.40); RDW 12.7 % (11.5-15.5); WBC 8.1 k/uL (3.8-10.6)
[2020-11-23 15:55] LABS: ALT 29 U/L (4-34); AST 36 U/L (14-36); African American GFR (CKD) >90 (>60 ml/min/1.73 sqM); Albumin 4.6 g/dL (3.5-5.0); Alkaline Phosphatase 111 U/L (38-126); Anion Gap 13 mmol/L; Blood Urea Nitrogen 20 mg/dL (7-17); Calcium 9.7 mg/dL (8.4-10.2); Carbon Dioxide 21 mmol/L (22-30); Chloride 105 mmol/L (98-107); Glucose 156 mg/dL (74-99); Magnesium 1.4 mg/dL (1.6-2.3); Non-African American GFR(CKD) 86 (>60 ml/min/1.73 sqM); Potassium 4.2 mmol/L (3.5-5.1); Sodium 139 mmol/L (137-145); Total Bilirubin 0.4 mg/dL (0.2-1.3); Total Protein 7.5 g/dL (6.3-8.2)
[2020-11-23 15:59] LABS: INR 0.9 (<1.2); Prothrombin Time 10.1 sec (9.0-12.0)
[2020-11-23 16:00] LABS: Partial Thromboplastin Time 22.2 sec (22.0-30.0)
[2020-11-23] MEDS ORDERED: MAGNESIUM SULFATE-D5W PMX 1 GM in DEXTROSE/WATER 1 100ML.BAG IVPB ONE (16:18)
--- NOTE | 2020-11-23 16:22 | XR ---
EXAMINATION TYPE: XR chest 1V portable DATE OF EXAM: 11/23/2020 COMPARISON: NONE HISTORY: Shortness of breath TECHNIQUE: Frontal and lateral views of the chest are obtained. FINDINGS: Scattered senescent parenchymal changes noted. Hyperinflation compatible with COPD. No evidence for infiltrate. No evidence for atelectasis. Heart size is stable. Mediastinal structures are stable and grossly unremarkable. No evidence for hilar prominence. Degenerative changes dorsal spine. IMPRESSION: 1. No evidence for acute pulmonary disease.
[2020-11-23] MEDS ORDERED: SODIUM CHLORIDE 0.9% 50 ML IVPB ONE (16:30)
[2020-11-23] MEDS ORDERED: [UNRECOGNIZED DRUG - OTHER] IVPB ONE (16:30)
[2020-11-23 17:09] VITALS: TEMP 98.6
[2020-11-23] MEDS ORDERED: ASPIRIN 325 MG TAB PO STA (18:15)
[2020-11-23 18:44] VITALS: BP 144/87; PULSE 74; RESP 18
== END 2020-11-23 18:43 | disposition home or self-care (01) ==
LOC: EC 13:13
DX: U07.1 COVID-19 (principal); R94.31 Abnormal electrocardiogram [ECG] [EKG]; I12.9 Hypertensive chronic kidney disease with stage 1 through stage 4 chronic kidney disease, or unspecified chronic kidney disease; E11.22 Type 2 diabetes mellitus with diabetic chronic kidney disease; N18.30 Chronic kidney disease, stage 3 unspecified; J45.909 Unspecified asthma, uncomplicated; E78.5 Hyperlipidemia, unspecified; F32.9 Major depressive disorder, single episode, unspecified; K21.9 Gastro-esophageal reflux disease without esophagitis; M19.90 Unspecified osteoarthritis, unspecified site; Z79.82 Long term (current) use of aspirin; Z79.4 Long term (current) use of insulin; Z91.041 Radiographic dye allergy status; Z86.718 Personal history of other venous thrombosis and embolism; Z86.73 Personal history of transient ischemic attack (TIA), and cerebral infarction without residual deficits; Z87.442 Personal history of urinary calculi; Z87.891 Personal history of nicotine dependence
CPT/HCPCS: 99284; 96365; 96367; 36415; 93005; 80053; 83735; 84484; 85025; 85610; 85730; 71045; J3475